=== PATIENT | female | born 1935 | race Caucasian/White ===

== ENCOUNTER 2018-09-07 12:32 | Inpatient (IN) ==
[2018-09-07] MEDS ORDERED: ETOMIDATE 2 MG/ML 20 ML VIAL IV ONE (18:29)
--- NOTE | 2018-09-07 19:05 | History & Physical Report ---
Date of Service September 07, 2018 Assessment & Plan (1) Hypoxia: No respiratory distress. On NRB 15L with 92% sat. No respiratory distress. Patient seems to be euvolemic on physical exam. Lungs with bibasilar crackles. ?multifocal PNA vs infammation. -Admit to PCU, continuous pulse oximetry -Supplemental O2 as needed -Check VBG, Procalcitonin, BNP -Check CXR PA and lateral, may need CT chest as well -Pulmonary consult - appreciate assistance -Continue Levaquin for now - patient has been on since 09/03, nearing completion of course Present on Admission?: Yes (2) Pneumonia: Patient treated for PNA at OSH. Presently afebrile, hemodynamically stable. Does not complain of constitutional symptoms consistent with PNA -Continue Levaquin for now and discontinue pending results below -Check Procalcitonin -Check Blood cultures -Check CXR (3) Hypertension: -Conitnue home medications, Atenolol, Benazepril, Lasix daily -Continue to monitor (4) CVA (cerebral vascular accident): Patient on ASA and Coumadin anticoagulation. Do not see a statin on her list -Obtain outpatient records -Consider DCing Coumadin if appropriate F/E/N - Heplock. Checking electrolytes. Heart healthy diet as tolerated. Ppx - Lovenox Code -Full per discussion with patient Dispo - Admit to medical floor History of Present Illness Chief Complaint: SOB Primary Care Provider: Matthew Palm Patient is an 82yo female with history of HTN, prior CVA, HLP presenting to [facility] on 09/03/18 with SOB, progressive for 2-3 days prior to admission as well as some anterior chest discomfort. Denies edema, weight gain, nausea, vomiting, chest pain. D-dimer was positive initially, CTA chest negative for acute PE. Imaging confirmed multilobar PNA and possible CHF. Patient was treated with IV Levaquin, nebs and steroids. She was diuresed with IV lasix. Patient with elevated INR on arrival which as reversed with Vitamin K. Patient requested transfer to [facility] as her clinical condition was failing to improve. Patient was transferred to [facility] at her request for Pulmonary assessment. Upon my encounter she is pleasant and awake, NRB in place with no respiratory distress. She states that she still feels short of breath at times. Denies CP/palpitations/edema/orthopnea/abdominal pain/ nausea/vomiting/diarrhea or constipation. Denies fevers/chills. No recent URI, no sick contacts or recent travel. Allergies Allergy/AdvReac Type Severity Reaction Status Date / Time No Known Allergies Allergy Unverified 09/07/18 18:57 Past Med/Surg History Medical History CVA (cerebral vascular accident) Hyperlipidemia Hypertension Surgical History S/P cataract extraction Family History Other Family history non-contributory Social History Communication Ability: Effective Machine Lead Burner Required: No Beliefs That Will Affect Care: None Current Living Situation: Spouse Other Information That Helps Us Care for You: No Feels Safe at Home: Yes Safety Concerns: Feels Safe At This Time Smoking Status: Never smoker Hx Alcohol Use: No Hx Substance Use: No Review of Systems All systems reviewed & are unremarkable except as noted in HPI & below Physical Exam Vital Signs (Past 24 Hours): Last Vital Signs Temp 36.9 C 09/07/18 18:18 Pulse 83 09/07/18 18:18 Resp 16 09/07/18 18:18 Pulse Ox 92 09/07/18 18:18 Physical Exam: General: patient resting comfortably, NAD, non-toxic in appearance, AA&O x 4, speaking in complete sentences with no respiratory distress Skin: warm, dry, intact, no rashes or lesions HEENT: NC/AT, PERRL, EOMI, anicteric sclera, conjunctiva without injection, external ear normal to inspection and nontender, nares patent, moist mucus membranes, dentition intact, no oropharyngeal lesions, neck supple, trachea midline, no LAD, no thyromegaly, no JVD, 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 Differential considerations include pilateral pneumonia/pneumonitis or asymmetric pulmonary edema. Large hiatal hernia 09/03/18 - CTA - moderate cardiomegaly. No pericardial effusion. No thoracic aneurysm. No PE. Bilateral multilobar interstitial and ground glss infiltrates possibly secondary to infection and atelectasis vs inflammatory pneumonitis vs edema. Code Status & VTE Plan Code Status full VTE Prophylaxis Plan VTE Prophylaxis will be ordered: Yes
[2018-09-07] MEDS ORDERED: ALBUTEROL 0.5% NEB SOLN 2.5 MG/0.5 ML VIAL NEB PRN (19:29)
[2018-09-07] MEDS ORDERED: ALUMINUM/MAGNESIUM SUSP 30 ML UDC PO PRN (19:29)
[2018-09-07] MEDS ORDERED: ACETAMINOPHEN 325 MG TAB PO PRN (19:29)
[2018-09-07] MEDS ORDERED: HYDROCODONE/ACETAMOPHEN 5/325MG TAB PO PRN (19:39)
[2018-09-07] MEDS ORDERED: DOCUSATE SODIUM 100 MG CAP PO PRN (19:39)
[2018-09-07 20:22] LABS: Hematocrit (blood only) 32.8 % (37-47); Hemoglobin 11.2 g/dL (12.0-16.0); Immature Granulocytes # (auto) 0.04 K/uL (0.00-0.02); Immature Granulocytes % (auto) 0.2 %; Lymphocytes # (auto) 0.35 K/uL (1.2-3.4); Lymphocytes % (auto) 2.1 %; Mean Corpuscular Hgb Conc 34.1 g/dL (32-36); Mean Corpuscular Volume 91.1 fL (80-100); Mean Platelet Volume 10.3 fL (7.4-10.4); Monocytes # (auto) 0.34 K/uL (0.11-0.59); Monocytes % (auto) 2.1 %; Neutrophils # (auto) 15.77 K/uL (1.4-6.5); Neutrophils % (auto) 95.6 %; Platelet Count 197 K/uL (130-400); RDW Coefficient of Variation 13.2 % (11.5-14.5); RDW Standard Deviation 43.8 fL (36.4-46.3)
[2018-09-07 20:32] LABS: INR 1.5 (0.9-1.1); Prothrombin Time 14.8 Seconds (9.0-12.0)
[2018-09-07 20:33] LABS: Base Excess VBG 6.4 mEq/L; HCO3 VBG 31 mmol/L; Oxygen Saturation VBG < 60.0 %; PCO2 VBG 45 mmHg (38-50); PO2 VBG 25 mmHg; pH VBG 7.46 (7.36-7.41)
[2018-09-07 20:40] LABS: Albumin Level 2.1 gm/dl (3.4-5.0); BUN Creatinine Ratio 32.3 (10-20); Bilirubin Direct 0.3 mg/dl (0-0.2); Calcium 8.1 mg/dl (8.5-10.1); Creatinine Clr Calc Pharmacy 35.6 ml/min; Est GFR (African American) 46.8; Est GFR (Non-African American) 40.4; Magnesium 2.1 mg/dl (1.8-2.4); Potassium 3.9 mmol/L (3.5-5.1)
[2018-09-07] MEDS ORDERED: LEVOFLOXACIN/D5W 500 MG/100 ML BAG IV ONE (20:45)
[2018-09-07 20:46] LABS: Bilirubin,Total 0.6 mg/dl (0.2-1); Phosphorus 2.9 mg/dl (2.5-4.9); Total Protein 6.2 gm/dl (6.4-8.2); Troponin I 0.033 ng/ml (0-0.045)
[2018-09-07] MEDS ORDERED: ENOXAPARIN INJ 30 MG/0.3 ML SYR SQ SCH (21:00)
[2018-09-08 06:39] LABS: Hematocrit (blood only) 32.1 % (37-47); Hemoglobin 10.9 g/dL (12.0-16.0); Immature Granulocytes # (auto) 0.04 K/uL (0.00-0.02); Immature Granulocytes % (auto) 0.3 %; Lymphocytes # (auto) 0.66 K/uL (1.2-3.4); Lymphocytes % (auto) 4.5 %; Mean Corpuscular Volume 90.2 fL (80-100); Mean Platelet Volume 9.9 fL (7.4-10.4); Monocytes # (auto) 0.37 K/uL (0.11-0.59); Monocytes % (auto) 2.5 %; Neutrophils # (auto) 13.63 K/uL (1.4-6.5); Neutrophils % (auto) 92.7 %; Platelet Count 210 K/uL (130-400); RDW Standard Deviation 42.7 fL (36.4-46.3); Red Blood Count 3.56 M/uL (4.2-5.4)
[2018-09-08 06:40] LABS: Base Excess VBG 6.6 mEq/L; Oxygen Saturation VBG 81.8 %; pH VBG 7.49 (7.36-7.41)
--- NOTE | 2018-09-08 06:50 | XRay Report ---
XR chest 1V portable CLINICAL HISTORY: Shortness of breath. COMPARISON STUDY: Chest radiograph August 29, 2018. FINDINGS: No pneumothorax or pleural effusion is identified. There is a large hiatal hernia. Extensiv e bilateral airspace opacities persist. There is moderate cardiomegaly. Severe osteoarthritis of both glenohumeral joints incidentally noted. IMPRESSION: 1. Persistent extensive bilateral airspace opacities which may reflect pneumonia or pulmonary edema. 2. Large hiatal hernia. Electronically signed by: Larry Shi M.D. 09/08/2018 6:49 AM
[2018-09-08 07:13] LABS: BUN Creatinine Ratio 40.1 (10-20); Calcium 8.5 mg/dl (8.5-10.1); Creatinine Clr Calc Pharmacy 46.7 ml/min; Est GFR (Non-African American) 54.4; Potassium 3.9 mmol/L (3.5-5.1)
--- NOTE | 2018-09-08 08:10 | CT Scan Report ---
CT OF THE CHEST WITHOUT IV CONTRAST CLINICAL HISTORY: increasing oxygen demand COMPARISON STUDY: Chest CT September 03, 2018. Chest radiograph September 07, 2018. CT DOSE: 454.50 mGy.cm TECHNIQUE: Axial images of the chest were obtained without IV contrast. Images were reviewed in the axial, sagittal, and coronal planes. IV contrast was not administered for this examination. Automat ed exposure control was utilized for the study. A dose lowering technique was utilized adhering to t he principles of ALARA. FINDINGS: The heart is moderately enlarged. There is no pericardial effusion. No enlarged axillary, mediastinal or hilar lymph nodes are present. A large hiatal hernia with partially intrathoracic stom ach is noted. There is no pneumothorax. A small left pleural effusion is noted. Lungs are suboptimall y assessed given respiratory motion. Extensive airspace opacities throughout both lungs are noted. Ri ght lung airspace opacity is increased since CT of September 03, 2018. Central airways are grossly patent . There is no cavitation. Several old thoracic spine compression fractures are present. IMPRESSION: 1. Slight progression of extensive bilateral airspace opacities since exam of September 03, 2018. These o pacities may reflect pneumonia or pulmonary edema. 2. Small left pleural effusion. 3. Large hiatal hernia. 4. Moderate cardiomegaly. Electronically signed by: Larry Shi M.D. 09/08/2018 8:08 AM
[2018-09-08] MEDS: QUETIAPINE FUMARATE 25 MG TABLET PO SCH (08:16)
[2018-09-08] MEDS: DULOXETINE HCL 30 MG CAP PO SCH (08:17)
[2018-09-08] MEDS: ATENOLOL 25 MG TABLET PO SCH (08:17)
[2018-09-08] MEDS: LISINOPRIL 10 MG TAB PO SCH (08:17)
[2018-09-08] MEDS: ASPIRIN 81 MG ECTAB PO SCH (08:17)
[2018-09-08] MEDS: FUROSEMIDE 20 MG TAB PO SCH (08:17)
[2018-09-08] MEDS: GABAPENTIN 100 MG CAP PO SCH (08:17)
[2018-09-08] MEDS: ALBUT/IPRATROP 3MG/0.5MG NEB 3 ML VIAL NEB SCH ×4 (11:11→23:35)
[2018-09-08] MEDS ORDERED: PIPERACILL/TAZOBAC CONSULT ACTIVE PRN (11:29)
[2018-09-08] MEDS ORDERED: PIPERACILLIN/TAZOBACTAM 3.375 GM in DEXTROSE 5% 100 ML IV ONE (12:30)
[2018-09-08 12:33] LABS: INR 1.5 (0.9-1.1); Prothrombin Time 15.1 Seconds (9.0-12.0)
--- NOTE | 2018-09-08 13:01 | Consultation Report ---
DATE OF CONSULTATION: 09/08/2018 PULMONARY CONSULTATION TIME: 11:05 a.m. REPORT OF CONSULTATION: The patient was seen in room 237. She is an 82-year-old female who was admitted to [facility] on September 03. The history was that she had had fatigue, some shortness of breath and an occasional cough for several days prior to that admission. She did not have any sputum production. She had no chills, fevers or sweats. She did not have sharp chest pains. She describes having a discomfort in the lower breast bone area slightly on the left. She denies vomiting, although she admits to having a longstanding history of an acid taste in her mouth. She states that she is not felt like doing house work since June, suggesting that she was having some symptoms prior to this. Her appetite is down some. She has lost a little bit of weight, she thinks. She has not gotten weight, however. The patient was diagnosed with CHF and pneumonia when she was first admitted. There was an echocardiogram done on September 04 that showed a normal ejection fraction, but with grade 1 diastolic dysfunction. The patient was on long-term Coumadin. Her INR on admission was 6.4. Her granddaughter was present during this evaluation and she states that it was started initially because of atrial fibrillation which then precipitated a CVA. The prolonged INR was somewhat perplexing. She was changed to Eliquis when she was at [facility]. They treated her there with Levaquin, nebulizer treatments and at least 1 day of Solu-Medrol. She was not significantly short of breath, but her hypoxia and shunt were not improving. She required high concentrations of oxygen as she is still requiring here. She was transferred to [facility] yesterday. She feels about the same. PAST PULMONARY HISTORY: None. PAST SURGICAL HISTORY: Positive only for bilateral cataract surgery. PAST MEDICAL HISTORY: 1. Hypertension. 2. CVA x2 approximately 2015. 3. Hyperlipidemia. 4. Large hiatal hernia. 5. Childbirth x1. SOCIAL HISTORY: Tobacco never. ETOH - none. FAMILY HISTORY: Mother in her 70s, diabetes. Father , 56, lung cancer. Her father was a smoker. ALLERGIES: No known allergies. CURRENT MEDICATIONS: Here: 1. Levofloxacin. 2. Baby aspirin. 3. Atenolol. 4. Duloxetine. 5. Lasix. 6. Gabapentin. 7. Lisinopril. 8. Lovenox 30 mg subQ q. 24 hours. 9. Seroquel. 10. DuoNebs q. 4. 11. Various p.r.n. meds. REVIEW OF SYSTEMS: The patient denies headache, dizziness or lightheadedness. She denies nasal symptoms. Denies difficulty swallowing, but as noted, she admits to an acid taste in her mouth, especially in the morning. Denies nausea, vomiting, diarrhea, constipation. Denies urinary symptoms. She has noticed pain in her knees with standing or walking. There have been no rashes. Review of systems is otherwise negative. PHYSICAL EXAMINATION: GENERAL: The patient is a pleasant 82-year-old female who was cooperative, alert and oriented. She actually was in no distress at rest. Weight is 80 kilograms with BMI 29.3. HEENT: Pupils were reactive. Implants were noted. Nares clear. Mouth exam showed dentures. Tongue was coated. NECK: Palpation of the neck reveals no lymph nodes or masses. CHEST: Inspection of the chest reveals an area of ecchymosis in the right upper anterior chest. She was unaware that that was there. It is not tender. Cardiac rate is 63 per minute. Rhythm is regular. Blood pressure 109/65. LUNGS: Respiratory rate 20. Diffuse coarse rhonchi and rales heard bilaterally. The patient coughed when taking deep breaths. Saturation was 87% on 65% FIO2 high flow. ABDOMEN: Soft. Bowel sounds were normal. There was no tenderness to palpation, masses or organomegaly. EXTREMITIES: Showed no cyanosis, clubbing. She has nonpitting edema of the lower extremities. LABORATORY DATA: As noted previously, CAT scan of the chest shows extensive bilateral airspace opacities, which may reflect pneumonia or pulmonary edema as per the radiologist. A very large hiatal hernia is noted with partially intrathoracic stomach. Cardiomegaly was noted. White count is 14.7. Hemoglobin 10.9. Platelets 210,000. INR yesterday was 1.5. Venous blood gas showed pH 7.49, pCO2 of 42, pO2 of 47. Electrolytes show sodium 132, potassium 3.9, chloride 96, bicarbonate 31. BUN 39 with a creatinine 0.97. ProBNP was 2109. Total protein 6.2 with albumin of 2.1. IMPRESSION: 1. Acute respiratory failure with hypoxia. 2. Diffuse bilateral airspace disease of undetermined etiology. COMMENTS AND RECOMMENDATIONS: The patient is relatively asymptomatic despite having severe hypoxia and severely abnormal CAT scan findings. She does not have a history of fevers or productive sputum that would make one more suspicious of infection. Aspiration would need to be considered and it is possible she could have ARDS secondary to aspiration. She does have the acid taste in her mouth on a fairly regular basis. Interstitial pneumonitis, either infectious or noninfectious would be a consideration. It is difficult to determine the exact chronicity of this problem. Seemingly it was fairly acute onset. She has had a brief trial of steroids at the other hospital for at least 24 hours. She did have a course of levofloxacin. I am suggesting a trial of BiPAP to see if this might improve her oxygenation and perhaps her x-ray findings as well depending upon what the underlying cause is. She has done reasonably well with high-flow nasal when she is comfortable with that. I will check a sed rate. It is notable that the procalcitonin was normal. That does not entirely exclude pneumonia, but it makes that possibility less. I would be inclined to give her some steroids at least in modest doses such as 40 mg IV q. 12 hours. It is possible the patient might ultimately need bronchoscopy if nothing is evident. With such a shunt, she would likely need to be done on mechanical ventilation. In light of her relative lack of symptoms, would continue to observe and continue with her treatment. She had been on levofloxacin at the other hospital. That is ordered here as well. I would tend to change to an alternative antibiotic, perhaps Zosyn, in light of her lack of response to levofloxacin. Her echo was only mildly abnormal and suggesting diastolic dysfunction. I think that makes it less likely that this is all related to diastolic CHF. There is no history of any change in meds that might have precipitated a drug reaction. Thank you for asking me to assist in her care.
[2018-09-08] MEDS: ENOXAPARIN 80 MG/0.8 ML SYR SC SCH ×2 (13:24→21:20)
[2018-09-08] MEDS: methylPREDNISolone 40 MG in SYRINGE 0 ML IV SCH (14:09)
[2018-09-08] MEDS: LACTOBACILLUS ACIDOPHILUS (FLORANEX) TAB PO SCH ×2 (15:03→17:44)
--- NOTE | 2018-09-08 16:45 | Hospitalist Progress Note ---
Date of Service September 08, 2018 Assessment & Plan (1) Hypoxia: She seems in surprisingly little distress for oxygen requirements and CT scan. Continue supportive care and follow closely. (2) Pneumonia: Exact etiology not clear, she has been on Levaquin for several days and it seems like she is not really getting better, at the same time she does not seem to be feeling worse just not better. Seems that her main reason for transfer was for pulmonary consultation, not necessarily clinical worsening. Pulmonary suggested change from Levaquin to Zosyn, a trial of BiPAP. I have escalated pulmonary toilet to utilize nebs and flutter valve. Continue supportive care. Also not entirely clear if this is all pneumonia or if there may be some element of pulmonary edema. Will check an echocardiogram to help risk stratify much of any cardiomyopathy. (3) Hypertension: -Conitnue home medications, Atenolol, Benazepril, Lasix daily -Continue to monitor, blood pressures have been a little on the low side, c ontinue to follow. (4) CVA (cerebral vascular accident): Patient on ASA and Coumadin anticoagulation. Do not see a statin on her list -Obtain outpatient records -Apparently the Coumadin was related to atrial fibrillation. For now since she is subtherapeutic, and a bronchoscopy may be needed in the near future, we will continue anticoagulation with full dose Lovenox (since it can be held as needed for procedure.) F/E/N - Heplock. Checking electrolytes. Heart healthy diet as tolerated. Ppx - Lovenox as above Code -Full per discussion with patient by admitting physician Dispo -continue current care on telemetry, eventually when she is doing better we will need PT/OT eval and treat to help with full disposition planning Subjective She is a somewhat vague historian. She actually denies much of any shortness of breath, and whenever pressing for respiratory symptoms will admit loosely to a c ough without much production. She flat out denies any fevers chills or sweats. She vaguely notes a nondescript malaise that was mostly manifest as weakness and a motivation over the last several months. Seems like it has been gradually coming on since around [place]. She denies any chest pain, really does not admit any shortness of breath. Has been eating and drinking okay. Review of Systems All systems reviewed & are unremarkable except as noted in HPI & below Physical Exam Vital Signs (Past 24 Hours): Last Vital Signs Temp 36.5 C 09/08/18 16:06 Pulse 65 09/08/18 16:06 Resp 20 09/08/18 16:06 BP 96/60 L 09/08/18 16:06 Pulse Ox 91 09/08/18 16:06 Physical Exam: In general she is fatigued appearing but otherwise in no distress. HEENT normocephalic atraumatic mucous membranes moist. Cardio is regular without rubs murmurs gallops. Lungs show diffuse scattered crackles no rhonchi or wheezes otherwise with good effort. Abdomen is soft nondistended nontender no masses or organomegaly. Extremities show no cyanosis or clubbing may be trace lower extremity edema. Skin shows no rashes no pallor or icterus. Neuro shows no focal deficits.
[2018-09-08] MEDS: PIPERACILLIN/TAZOBACTAM 3.375 GM in DEXTROSE 5% 100 ML IV SCH (17:44)
[2018-09-08] MEDS ORDERED: LEVOFLOXACIN/D5W 500 MG/100 ML BAG IV SCH (18:00)
[2018-09-09] MEDS: methylPREDNISolone 40 MG in SYRINGE 0 ML IV SCH ×3 (00:01→23:22)
[2018-09-09] MEDS: PIPERACILLIN/TAZOBACTAM 3.375 GM in DEXTROSE 5% 100 ML IV SCH ×3 (02:10→18:53)
[2018-09-09] MEDS: ALBUT/IPRATROP 3MG/0.5MG NEB 3 ML VIAL NEB SCH ×6 (03:14→23:32)
--- NOTE | 2018-09-09 07:15 | XRay Report ---
XR chest 1V portable HISTORY: 82 years-old Female lung infiltrates acute shortness of breath with bilateral airspace opac ities COMPARISON: Chest radiograph 09/07/2018, chest CT 09/08/2018 TECHNIQUE: Portable AP view of the chest FINDINGS: Cardiomediastinal and hilar silhouettes are unchanged. Left greater than right bilateral mixed inters titial and alveolar opacities redemonstrated. Slightly improved aeration of the left lung. Trace left pleural effusion is unchanged. No pneumothorax identified. Large hiatal hernia. Degenerative changes of the shoulders and spine. IMPRESSION: 1. Extensive left greater than right bilateral mixed interstitial and alveolar opacities redemonstrat ed with slightly improved aeration about the left lung. 2. Trace left pleural effusion. 3. Large hiatal hernia. 4. Cardiomegaly. The above report was generated using voice recognition software. It may contain grammatical, syntax o r spelling errors. Electronically signed by: Tod Giraldo M.D. 09/09/2018 7:14 AM
[2018-09-09] MEDS: LACTOBACILLUS ACIDOPHILUS (FLORANEX) TAB PO SCH ×3 (08:20→16:38)
[2018-09-09] MEDS: QUETIAPINE FUMARATE 25 MG TABLET PO SCH (08:21)
[2018-09-09] MEDS: ASPIRIN 81 MG ECTAB PO SCH (08:21)
[2018-09-09] MEDS: GABAPENTIN 100 MG CAP PO SCH (08:21)
[2018-09-09] MEDS: LISINOPRIL 10 MG TAB PO SCH (08:21)
[2018-09-09] MEDS: DULOXETINE HCL 30 MG CAP PO SCH (08:21)
[2018-09-09] MEDS: ATENOLOL 25 MG TABLET PO SCH (08:21)
[2018-09-09] MEDS: FUROSEMIDE 20 MG TAB PO SCH (08:21)
[2018-09-09] MEDS: ENOXAPARIN 80 MG/0.8 ML SYR SC SCH ×2 (08:21→20:22)
--- NOTE | 2018-09-09 08:45 | Hospitalist Progress Note ---
Date of Service September 09, 2018 Assessment & Plan (1) Hypoxia: She seems in surprisingly little distress for oxygen requirements and CT scan. Continue supportive care and follow closely. Likely secondary to multilobar pneumonia considering atypical pneumonia (2) Pneumonia: Exact etiology not clear, she has been on Levaquin for several days and it seems like she is not really getting better, 330, change from Levaquin to Zosyn, using high flow oxygen, escalated pulmonary toilet to utilize nebs and flutter valve. 09/09 add azithromycin for atypical coverage could consider pulmonary consultation for bronchoscopy consider other nontypical pulmonary infections Unrevealing echocardiogram showing preserved EF and no significant valvular abnormalities (3) Hypertension: -Conitnue home medications, Atenolol, lisinopril, Lasix daily systoic hypertension, will tolerate as diastolic are low (4) CVA (cerebral vascular accident): Patient on ASA and plavix. -Apparently previously Coumadin was related to atrial fibrillation. On admission she was subtherapeutic, and a bronchoscopy may be needed in the near future, she will be bridged with full dose Lovenox (since it can be held as needed for procedure.) F/E/N - Heplock. Checking electrolytes. Heart healthy diet as tolerated. Ppx - Lovenox as above Code -Full per discussion with patient by admitting physician Dispo -continue current care on telemetry, eventually when she is doing better we will need PT/OT eval and treat to help with full disposition planning Subjective Patient still requiring high flow oxygen she is fairly short of breath she says that she is a nonproductive cough. She is been around some cigarette secondhand smoke with her but this is not throughout the whole marriage. He is quit many years ago and remains not smoking. Patient's chest x-ray has some slight improvement in his bilaterally and multi lobar is making me consider atypical pneumonia is possible the differential. Review of Systems ROS: well nourished well developed. No double vision blurry vision No problems with speech or swallowing No palpitations, chest pain or pressure Patient remains dyspneic with a nonproductive cough No abdominal pain nausea vomiting diarrhea No burning urine urine frequency or changes in color No focal joint pain or muscle pain No skin rashes or oral lesions No unusual bruising or bleeding No focused back pain or numbness or loss of strength No changes in memory or confusion Physical Exam Vital Signs (Past 24 Hours): Last Vital Signs Temp 36.6 C 09/09/18 08:05 Pulse 69 09/09/18 08:05 Resp 16 09/09/18 08:05 BP 126/77 09/09/18 08:05 Pulse Ox 90 09/09/18 08:05 The patient appeared well nourished and normally developed. Vital signs as documented. She is in moderate respiratory distress Head exam is unremarkable. normocephalic, atraumatic Neck is without jugular venous distension, thyromegaly, or lymphademopathy Lungs are bibasilarly with coarse rhonchi bilaterally in the upper lobes no egophony no focal air loss Cardiac exam reveals Rhythm is regular. Slight systolic murmurs heard at the left upper sternal border first and second heart sounds normal. Abdominal exam reveals normal bowel sounds, no masses, no organomegaly Extremities are nonedematous and both pedal pulses are present Neurologic exam is A&Ox3, no focal deficits, strength is equal bilateral Psychologically seems neither anxious or depressed Skin is warm Dry without bruises or lesions
[2018-09-09 08:49] LABS: Hematocrit (blood only) 35.5 % (37-47); Hemoglobin 11.9 g/dL (12.0-16.0); Immature Granulocytes # (auto) 0.03 K/uL (0.00-0.02); Immature Granulocytes % (auto) 0.3 %; Lymphocytes # (auto) 0.34 K/uL (1.2-3.4); Lymphocytes % (auto) 3.1 %; Mean Corpuscular Hgb Conc 33.5 g/dL (32-36); Mean Platelet Volume 9.7 fL (7.4-10.4); Monocytes # (auto) 0.19 K/uL (0.11-0.59); Monocytes % (auto) 1.8 %; Neutrophils # (auto) 10.24 K/uL (1.4-6.5); Neutrophils % (auto) 94.8 %; Platelet Count 270 K/uL (130-400); RDW Coefficient of Variation 13.2 % (11.5-14.5); RDW Standard Deviation 43.1 fL (36.4-46.3)
[2018-09-09 09:06] LABS: BUN Creatinine Ratio 32.5 (10-20); Calcium 8.6 mg/dl (8.5-10.1); Creatinine Clr Calc Pharmacy 38.6 ml/min; Est GFR (African American) 51.9; Est GFR (Non-African American) 44.7; Potassium 3.9 mmol/L (3.5-5.1)
--- NOTE | 2018-09-09 14:46 | Progress Note ---
DATE: 09/09/2018 PULMONARY PROGRESS NOTE TIME: 1:05 p.m. SUBJECTIVE: The patient overall feels about the same. She is not the best historian. She does not feel that her breathing is any better. At the same time, she told me she overall felt better, but she could not tell me one particular way that she felt better. She was not fond of the BiPAP, although nursing and respiratory told me that BiPAP did better at improving her oxygenation than the high flow has. We had her wear BiPAP for 2 sessions yesterday of about 2 hours each. She then wore it overnight. OBJECTIVE: GENERAL: The patient looks comfortable. She is slightly sleepy. VITAL SIGNS: Temperature is 36.8. There have been no fevers. ENT: Exam is unchanged from yesterday. CARDIAC: Heart rate is 64 per minute. Rhythm was regular. Blood pressure 106/70. I had difficulty getting the patient to take deep breaths. Mild rales were heard posteriorly. LUNGS: Breath sounds were diminished. Saturation was 91% on high-flow nasal. I was told she is on 65%. ABDOMEN: Soft and nontender. EXTREMITIES: Show mild nonpitting edema. DIAGNOSTIC STUDIES: Echocardiogram done yesterday showed an ejection fraction of 60%-65% with grade I diastolic dysfunction. Chest x-ray today again showed bilateral interstitial and alveolar opacities, left greater than right. It was reported as slight improvement in the area of the left lung. Large hiatal hernia was noted. White count today was 10.8. This has improved. Admission white count was 16.5 and yesterday was 14.7. Hemoglobin today 11.9. Electrolytes show sodium 132, potassium 3.9, chloride 93, bicarbonate 31. The BUN today was 37 with a creatinine of 1.14. The creatinine is elevated compared with yesterday when it was 0.97. Blood cultures are negative thus far. IMPRESSION: 1. Acute respiratory failure with hypoxia. 2. Diffuse bilateral airspace disease of undetermined origin. Considerations include aspiration, interstitial pneumonitis, acute respiratory distress syndrome, etc. PLAN: The patient is making very slow progress. The etiology of her infiltrates is not clear. She is currently on Zosyn and methylprednisolone. She is also getting nebulizer treatments q.4 hours. If there is no improvement in another 48 hours or so, consideration might be given to bronchoscopy. In all likelihood, if she has not improved, that scope would need to be done with mechanical ventilation. Thus, there may be considerations as to whether the patient would wish this or not.
[2018-09-09] MEDS ORDERED: FUROSEMIDE 20 MG in SYRINGE 0 ML IV ONE (16:15)
[2018-09-09] MEDS: AZITHROMYCIN 500 MG in DEXTROSE 5% 250 ML IV SCH (16:50)
[2018-09-09] MEDS ORDERED: DiphenhydrAMINE HCL 50 MG/ML VIAL IV STA (20:09)
[2018-09-10] MEDS ORDERED: ZOLPIDEM TARTRATE 5 MG TAB PO ONE (00:38)
[2018-09-10] MEDS: PIPERACILLIN/TAZOBACTAM 3.375 GM in DEXTROSE 5% 100 ML IV SCH ×3 (01:51→19:27)
[2018-09-10] MEDS: ALBUT/IPRATROP 3MG/0.5MG NEB 3 ML VIAL NEB SCH ×6 (03:44→23:44)
[2018-09-10] MEDS: ENOXAPARIN 80 MG/0.8 ML SYR SC SCH ×2 (07:53→21:22)
[2018-09-10] MEDS: QUETIAPINE FUMARATE 25 MG TABLET PO SCH (07:54)
[2018-09-10] MEDS: LACTOBACILLUS ACIDOPHILUS (FLORANEX) TAB PO SCH ×3 (07:54→17:10)
[2018-09-10] MEDS: ATENOLOL 25 MG TABLET PO SCH ×2 (07:54→09:51)
[2018-09-10] MEDS: LISINOPRIL 10 MG TAB PO SCH (07:55)
[2018-09-10] MEDS: DULOXETINE HCL 30 MG CAP PO SCH (07:55)
[2018-09-10] MEDS: FUROSEMIDE 20 MG TAB PO SCH (07:55)
[2018-09-10] MEDS: ASPIRIN 81 MG ECTAB PO SCH (07:55)
[2018-09-10] MEDS: GABAPENTIN 100 MG CAP PO SCH (07:55)
--- NOTE | 2018-09-10 11:25 | Hospitalist Progress Note ---
Date of Service September 10, 2018 Assessment & Plan (1) Hypoxia: She seems in surprisingly little distress for oxygen requirements and CT scan. Continue supportive care and follow closely. Likely secondary to multilobar pneumonia considering atypical pneumonia, pneumonitis, ARDS patient speaking in complete sentences encourage OOB as much as possible, ambulate will need to titrate down on oxygen, saturation goal is 88% will need two step prior to d/c hope to be ready by 09/12 (2) Pneumonia: continue on Zosyn and Zithromax multifocal pneumonia, could be due to immunocompromised state with cancer could also be some pneumonitis from chemoradiation no plans for bronchoscopy continue Steroids (3) Hypertension: -Conitnue home medications, Atenolol, lisinopril, Lasix daily systoic hypertension, will tolerate as diastolic are low (4) CVA (cerebral vascular accident): Patient on ASA and plavix. -Apparently previously Coumadin was related to atrial fibrillation. On admission she was subtherapeutic, and a bronchoscopy may be needed in the near future, she will be bridged with full dose Lovenox (since it can be held as needed for procedure.) F/E/N - Heplock. Checking electrolytes. Heart healthy diet as tolerated. Ppx - Lovenox as above Code -Full per discussion with patient by admitting physician Dispo - PT/OT daniel, will transfer to medical tomorrow, likely will require oxygen on discharge (5) Pneumonitis: continue Steroids slow taper on discharge Subjective patient laying in bed, no distress, speaking in full sentences still requiring HFNC, on 40L currently lungs diminished, no wheezing she has a good appetite, ate her breakfast no OOB yet today, encouraged her to make an effort for lunch and stay OOB afterwards she is asking about discharge, explained that she will need to be requiring less oxygen cough is minimal appreciate pulmonology notes, no plans for bronchoscopy for now reviewed labs, reviewed chart Review of Systems All systems reviewed & are unremarkable except as noted in HPI & below Constitutional: + fatigue and + weakness; no fever, no chills and no sweats Respiratory: + cough, + dyspnea and + dyspnea on exertion; no hemoptysis, no pain with cough, no sputum production and no wheezing Cardiovascular: + edema (trace); no chest pain and no palpitations Physical Exam Vital Signs (Past 24 Hours): Last Vital Signs Temp 36.4 C L 09/10/18 10:23 Pulse 64 09/10/18 11:09 Resp 16 09/10/18 11:09 BP 118/66 09/10/18 10:23 Pulse Ox 89 L 09/10/18 11:09 Constitutional: WD/WN, vitals as above Eyes: PERRL, conjunctivae normal, anicteric sclerae ENMT: external ear and nose normal, oropharynx normal Neck: trachea midline, no thyromegaly Respiratory: normal respiratory effort and normal percussion; no respiratory distress, no labored breathing and does not use accessory muscles Auscultation: lungs clear to auscultation bilaterally; no wheezes Cardiovascular: RRR, no murmur, no edema Gastrointestinal (Abdomen): normal bowel sounds, soft, nontender, no he patosplenomegaly Musculoskeletal: no cyanosis or clubbing, extremities motor strength 5/5 Skin: no rashes, warm and dry Neurologic: patellar DTR's 2+ bilat, sensation intact and PERRL, EOMI, accommodation nl, no face palsy, no dysarthria Psychiatric: A+Ox3, euthymic affect Lymphatic: no cervical or axillary lymphadenopathy Results & Data Medications Administered Current Inpatient Medications Acetaminophen (Tylenol) 650 mg PO Q4H PRN PRN Reason: Pain or Fever Stop: 10/07/18 19:28 Hydrocodone Bitart/Acetaminophen ([place] 5/325) 1 tab PO Q4H PRN PRN Reason: Pain Stop: 09/21/18 19:38 Al Hydrox/Mg Hydrox/Simethicone (Maalox) 15 ml PO Q4H PRN PRN Reason: Dyspepsia Stop: 10/07/18 19:28 Albuterol (Ventolin 0.5% 2.5mg/0.5ml) 2.5 mg NEB Q2H PRN PRN Reason: SOB/Wheeze Stop: 10/07/18 19:28 Albuterol (Duoneb) 3 ml NEB Q4R [facility] Stop: 10/08/18 11:59 Last Admin: 09/10/18 11:08 Dose: 3 ml Documented by: Aspirin (Ecotrin Ectab) 81 mg PO DAILY [facility] Stop: 10/08/18 08:59 Last Admin: 09/10/18 07:55 Dose: 81 mg Documented by: Atenolol (Tenormin) 25 mg PO [facility] Stop: 10/08/18 08:59 Last Admin: 09/10/18 09:51 Dose: 25 mg Documented by: Docusate Sodium (Colace) 100 mg PO BID PRN PRN Reason: Constipation Stop: 10/07/18 19:38 Duloxetine HCl (Cymbalta) 30 mg PO [facility] Stop: 10/08/18 08:59 Last Admin: 09/10/18 07:55 Dose: 30 mg Documented by: Enoxaparin Sodium (Lovenox) 80 mg SC BID [facility] Stop: 10/08/18 11:59 Last Admin: 09/10/18 07:53 Dose: 80 mg Documented by: Furosemide (Lasix) 20 mg PO [facility] Stop: 10/08/18 08:59 Last Admin: 09/10/18 07:55 Dose: 20 mg Documented by: Gabapentin (Neurontin) 100 mg PO [facility] Stop: 10/08/18 08:59 Last Admin: 09/10/18 07:55 Dose: 100 mg Documented by: Piperacillin Sod/Tazobactam (Sod 3.375 gm/ Dextrose) 115 mls @ 28.75 mls/hr IV Q8H [facility]; Protocol Stop: 09/15/18 17:59 Last Admin: 09/10/18 10:20 Dose: 30 mls/hr Documented by: Methylprednisolone 40 mg/ (Syringe) 0.64 mls @ 1.5 mls/min IV Q12H [facility] Stop: 10/08/18 11:59 Last Admin: 09/09/18 23:22 Dose: 1.5 mls/min Documented by: Azithromycin 500 mg/ Dextrose 255 mls @ 125 mls/hr IV Q24H [facility] Stop: 09/16/18 15:59 Last Infusion: 09/09/18 18:53 Dose: Infused Documented by: Lactobacillus Acidophilus (Floranex) 4 tab PO TIDM [facility] Stop: 10/08/18 11:59 Last Admin: 09/10/18 07:54 Dose: 4 tab Documented by: Lisinopril (Zestril) [facility] Stop: 10/08/18 08:59 Last Admin: 09/10/18 07:55 Dose: 10 mg Documented by: Miscellaneous Information (Consult) 1 ea N/A UD PRN PRN Reason: Consult Stop: 10/08/18 11:28 Ondansetron HCl (Zofran) 4 mg IV Q6H PRN PRN Reason: Nausea Stop: 10/07/18 19:28 Quetiapine Fumarate (Seroquel) 25 mg PO DAILY [facility] Stop: 10/08/18 08:59 Last Admin: 09/10/18 07:54 Dose: 25 mg Documented by:
[2018-09-10] MEDS: methylPREDNISolone 40 MG in SYRINGE 0 ML IV SCH ×2 (11:30→23:45)
--- NOTE | 2018-09-10 17:06 | Pulmonology Progress Note ---
Date of Service September 10, 2018 Assessment & Plan (1) Hypoxia: acute hypoxic respiratory failure bilateral infiltrates pneumonia vs pneumonitis vs aspiration vs ARDS on piperacillin-tazobactam and azithromycin still has significant oxygenation need titrate fio2 for sat >88% possible pneumonitis on steroids continue supportive care. patient is relatively asymtomatic for her o2 need Subjective breathing improving Physical Exam Vital Signs (Past 24 Hours): Last Vital Signs Temp 36.7 C 09/10/18 14:57 Pulse 62 09/10/18 15:40 Resp 18 09/10/18 15:40 BP 98/62 L 09/10/18 14:57 Pulse Ox 95 09/10/18 15:40 Physical Exam: Constitutional: Comfortable NAD on high flow NC 63% HEENT: normocephalic atraumatic. MMM. CV: RRR nl s1,s2 no murmurs rubs or gallops Lungs: crackles bilaterally. no accessory muscle use Abd: soft nontender nondistended. normal bowel sounds Ext: no edema. no cyanosis, no edema Skin: warm dry Neuro: alert and awake. moving all extremities Psych: flat affect
[2018-09-10] MEDS: AZITHROMYCIN 500 MG in DEXTROSE 5% 250 ML IV SCH (17:10)
[2018-09-10] MEDS: ZOLPIDEM TARTRATE 5 MG TAB PO PRN (21:22)
[2018-09-11] MEDS: PIPERACILLIN/TAZOBACTAM 3.375 GM in DEXTROSE 5% 100 ML IV SCH ×3 (02:15→18:31)
[2018-09-11] MEDS: ALBUT/IPRATROP 3MG/0.5MG NEB 3 ML VIAL NEB SCH ×6 (03:25→23:08)
[2018-09-11 06:01] LABS: Hematocrit (blood only) 35.7 % (37-47); Hemoglobin 11.9 g/dL (12.0-16.0); Mean Corpuscular Hgb Conc 33.3 g/dL (32-36); Mean Corpuscular Volume 91.1 fL (80-100); Mean Platelet Volume 9.3 fL (7.4-10.4); Platelet Count 308 K/uL (130-400); RDW Coefficient of Variation 13.1 % (11.5-14.5); RDW Standard Deviation 43.7 fL (36.4-46.3); Red Blood Count 3.92 M/uL (4.2-5.4); White Blood Count 12.09 K/uL (4.8-10.8)
[2018-09-11 06:43] LABS: BUN Creatinine Ratio 30.4 (10-20); Calcium 8.2 mg/dl (8.5-10.1); Creatinine Clr Calc Pharmacy 58.1 ml/min; Est GFR (African American) 84.7; Est GFR (Non-African American) 73.1
[2018-09-11] MEDS: LACTOBACILLUS ACIDOPHILUS (FLORANEX) TAB PO SCH ×3 (08:12→17:37)
[2018-09-11] MEDS: ENOXAPARIN 80 MG/0.8 ML SYR SC SCH ×2 (08:17→20:02)
[2018-09-11] MEDS: FUROSEMIDE 20 MG TAB PO SCH (08:19)
[2018-09-11] MEDS: DULOXETINE HCL 30 MG CAP PO SCH (08:19)
[2018-09-11] MEDS: GABAPENTIN 100 MG CAP PO SCH (08:19)
[2018-09-11] MEDS: ATENOLOL 25 MG TABLET PO SCH (08:20)
[2018-09-11] MEDS: QUETIAPINE FUMARATE 25 MG TABLET PO SCH (08:20)
[2018-09-11] MEDS: ASPIRIN 81 MG ECTAB PO SCH (08:21)
[2018-09-11] MEDS: LISINOPRIL 10 MG TAB PO SCH (08:21)
--- NOTE | 2018-09-11 11:37 | Pulmonology Progress Note ---
Date of Service September 11, 2018 Assessment & Plan (1) Hypoxia: acute hypoxic respiratory failure bilateral infiltrates pneumonia vs pneumonitis vs aspiration vs ARDS on piperacillin-tazobactam and azithromycin still has significant oxygenation need but improved from yesterday titrate fio2 for sat >88% possible pneumonitis on steroids. T/C tapering tommorow to daily continue supportive care. OOB as much as possible Subjective feels about the same fio2 on high flow down to 51% Physical Exam Vital Signs (Past 24 Hours): Last Vital Signs Temp 36.7 C 09/11/18 07:00 Pulse 61 09/11/18 11:13 Resp 18 09/11/18 11:13 BP 112/66 09/11/18 07:00 Pulse Ox 95 09/11/18 11:13 Physical Exam: Constitutional: Comfortable NAD on high flow NC 51% HEENT: normocephalic atraumatic. MMM. CV: RRR nl s1,s2 no murmurs rubs or gallops Lungs: slight crackles bilaterally. moving air well no accessory muscle use Abd: soft nontender nondistended. Ext: no edema. no cyanosis, no edema Skin: warm dry Neuro: alert and awake. moving all extremities Psych: flat affec
--- NOTE | 2018-09-11 11:59 | Hospitalist Progress Note ---
Date of Service September 11, 2018 Assessment & Plan (1) Hypoxia: She seems in surprisingly little distress for oxygen requirements and CT scan. Continue supportive care and follow closely. Likely secondary to multilobar pneumonia considering atypical pneumonia, pneumonitis, ARDS patient speaking in complete sentences encourage OOB as much as possible, ambulate will need to titrate down on oxygen, saturation goal is 88% will need two step prior to d/c will likely be hospitalized through the end of this week will get PT/OT to evaluate for any rehab needs (2) Pneumonia: continue on Zosyn and Zithromax multifocal pneumonia WBC down to 12k, no fever no plans for bronchoscopy continue Steroids (3) Hypertension: -Continue home medications, Atenolol, lisinopril, Lasix daily BP stable (4) CVA (cerebral vascular accident): Patient on ASA and plavix. -Apparently previously Coumadin was related to atrial fibrillation. On admission she was subtherapeutic, and a bronchoscopy may be needed in the near future, she will be bridged with full dose Lovenox (since it can be held as needed for procedure.) F/E/N - Heplock. Checking electrolytes. Heart healthy diet as tolerated. Ppx - Lovenox as above Code -Full per discussion with patient by admitting physician Dispo - PT/OT daniel, transfer to medical today (5) Pneumonitis: continue Steroids slow taper on discharge Subjective patient still with dyspnea at rest, but no distress other vitals stable, no fever minimal cough, no sputum production at all WBC down to 12k, Cr stable, electrolytes stable appreciate pulmonology note Review of Systems All systems reviewed & are unremarkable except as noted in HPI & below Constitutional: + fatigue and + weakness; no fever, no chills and no sweats Respiratory: + cough, + dyspnea and + dyspnea on exertion; no hemoptysis, no pain with cough, no sputum production and no wheezing Cardiovascular: + edema (trace); no chest pain and no palpitations Physical Exam Vital Signs (Past 24 Hours): Last Vital Signs Temp 36.7 C 09/11/18 07:00 Pulse 61 09/11/18 11:13 Resp 18 09/11/18 11:13 BP 112/66 09/11/18 07:00 Pulse Ox 95 09/11/18 11:13 Constitutional: WD/WN, vitals as above Eyes: PERRL, conjunctivae normal, anicteric sclerae ENMT: external ear and nose normal, oropharynx normal Neck: trachea midline, no thyromegaly Respiratory: normal respiratory effort and normal percussion; no respiratory distress, no labored breathing and does not use accessory muscles Auscultation: lungs clear to auscultation bilaterally; no wheezes Cardiovascular: RRR, no murmur, no edema Gastrointestinal (Abdomen): normal bowel sounds, soft, nontender, no hepatosplenomegaly Musculoskeletal: no cyanosis or clubbing, extremities motor strength 5/5 Skin: no rashes, warm and dry Neurologic: patellar DTR's 2+ bilat, sensation intact and PERRL, EOMI, accommodation nl, no face palsy, no dysarthria Psychiatric: A+Ox3, euthymic affect Lymphatic: no cervical or axillary lymphadenopathy Results & Data Laboratory Results Laboratory Results - last 24 hr 09/11/18 09/11/18 05:18 05:18 WBC 12.09 H RBC 3.92 L Hgb 11.9 L Hct 35.7 L MCV 91.1 MCH 30.4 MCHC 33.3 RDW Std Deviation 43.7 RDW Coeff of Chris 13.1 Plt Count 308 MPV 9.3 Sodium 134 L Potassium 4.0 Chloride 95 L Carbon Dioxide 33 H Anion Gap 6.0 BUN 23 H Creatinine 0.76 D Est Cr Clr Drug Dosing 58.1 Est GFR ( Amer) 84.7 Est GFR (Non-Af Amer) 73.1 BUN/Creatinine Ratio 30.4 H Glucose 162 H Calcium 8.2 L Medications Administered Current Inpatient Medications Acetaminophen (Tylenol) 650 mg PO Q4H PRN PRN Reason: Pain or Fever Stop: 10/07/18 19:28 Hydrocodone Bitart/Acetaminophen ([place] 5/325) 1 tab PO Q4H PRN PRN Reason: Pain Stop: 09/21/18 19:38 Al Hydrox/Mg Hydrox/Simethicone (Maalox) 15 ml PO Q4H PRN PRN Reason: Dyspepsia Stop: 10/07/18 19:28 Albuterol (Ventolin 0.5% 2.5mg/0.5ml) 2.5 mg NEB Q2H PRN PRN Reason: SOB/Wheeze Stop: 04/28/19 19:28 Albuterol (Duoneb) 3 ml NEB Q4R [facility] Stop: 10/08/18 11:59 Last Admin: 09/11/18 11:11 Dose: 3 ml Documented by: Aspirin (Ecotrin Ectab) 81 mg PO DAILY [facility] Stop: 10/08/18 08:59 Last Admin: 09/11/18 08:21 Dose: 81 mg Documented by: Atenolol (Tenormin) 25 mg PO QAM [facility] Stop: 10/08/18 08:59 Last Admin: 09/11/18 08:20 Dose: 25 mg Documented by: Docusate Sodium (Colace) 100 mg PO BID PRN PRN Reason: Constipation Stop: 10/07/18 19:38 Duloxetine HCl (Cymbalta) [facility] Stop: 10/08/18 08:59 Last Admin: 09/11/18 08:19 Dose: 30 mg Documented by: Enoxaparin Sodium (Lovenox) 80 mg SC BID [facility] Stop: 10/08/18 11:59 Last Admin: 09/11/18 08:17 Dose: 80 mg Documented by: Furosemide (Lasix) 20 mg PO QAM [facility] Stop: 10/08/18 08:59 Last Admin: 09/11/18 08:19 Dose: 20 mg Documented by: Gabapentin (Neurontin) 100 mg PO QAM [facility] Stop: 10/08/18 08:59 Last Admin: 09/11/18 08:19 Dose: 100 mg Documented by: Piperacillin Sod/Tazobactam (Sod 3.375 gm/ Dextrose) 115 mls @ 28.75 mls/hr IV Q8H [facility]; Protocol Stop: 09/15/18 17:59 Last Infusion: 09/11/18 06:33 Dose: Infused Documented by: Methylprednisolone 40 mg/ (Syringe) 0.64 mls @ 1.5 mls/min IV Q12H [facility] Stop: 10/08/18 11:59 Last Admin: 09/10/18 23:45 Dose: 1.5 mls/min Documented by: Azithromycin 500 mg/ Dextrose 255 mls @ 125 mls/hr IV Q24H [facility] Stop: 09/16/18 15:59 Last Infusion: 09/10/18 19:26 Dose: Infused Documented by: Lactobacillus Acidophilus (Floranex) 4 tab PO TIDM [facility] Stop: 10/08/18 11:59 Last Admin: 09/11/18 08:12 Dose: 4 tab Documented by: Lisinopril (Zestril) 10 mg PO QAM [facility] Stop: 10/08/18 08:59 Last Admin: 09/11/18 08:21 Dose: 10 mg Documented by: Miscellaneous Information (Consult) 1 ea N/A UD PRN PRN Reason: Consult Stop: 10/08/18 11:28 Ondansetron HCl (Zofran) 4 mg IV Q6H PRN PRN Reason: Nausea Stop: 10/07/18 19:28 Quetiapine Fumarate (Seroquel) 25 mg PO DAILY [facility] Stop: 10/08/18 08:59 Last Admin: 09/11/18 08:20 Dose: 25 mg Documented by: Zolpidem Tartrate (Ambien) 5 mg PO HS PRN PRN Reason: Sleep Stop: 10/10/18 19:42 Last Admin: 09/10/18 21:22 Dose: 5 mg Documented by:
[2018-09-11] MEDS: methylPREDNISolone 40 MG in SYRINGE 0 ML IV SCH (12:12)
[2018-09-11] MEDS: AZITHROMYCIN 500 MG in DEXTROSE 5% 250 ML IV SCH (16:18)
[2018-09-11] MEDS: ZOLPIDEM TARTRATE 5 MG TAB PO PRN (21:57)
[2018-09-12] MEDS: methylPREDNISolone 40 MG in SYRINGE 0 ML IV SCH (00:35)
[2018-09-12] MEDS: PIPERACILLIN/TAZOBACTAM 3.375 GM in DEXTROSE 5% 100 ML IV SCH ×3 (00:38→19:55)
[2018-09-12] MEDS: ALBUT/IPRATROP 3MG/0.5MG NEB 3 ML VIAL NEB SCH ×6 (03:43→23:11)
[2018-09-12] MEDS: GABAPENTIN 100 MG CAP PO SCH (08:00)
[2018-09-12] MEDS: LISINOPRIL 10 MG TAB PO SCH (08:00)
[2018-09-12] MEDS: ASPIRIN 81 MG ECTAB PO SCH (08:00)
[2018-09-12] MEDS: FUROSEMIDE 20 MG TAB PO SCH (08:00)
[2018-09-12] MEDS: ATENOLOL 25 MG TABLET PO SCH (08:01)
[2018-09-12] MEDS: LACTOBACILLUS ACIDOPHILUS (FLORANEX) TAB PO SCH ×3 (08:01→18:42)
[2018-09-12] MEDS: DULOXETINE HCL 30 MG CAP PO SCH (08:01)
[2018-09-12] MEDS: ENOXAPARIN 80 MG/0.8 ML SYR SC SCH ×2 (08:01→21:51)
[2018-09-12] MEDS: QUETIAPINE FUMARATE 25 MG TABLET PO SCH (08:03)
--- NOTE | 2018-09-12 10:35 | Pulmonology Progress Note ---
Date of Service September 12, 2018 Assessment & Plan (1) Hypoxia: acute hypoxic respiratory failure bilateral infiltrates pneumonia vs pneumonitis vs aspiration vs ARDS on piperacillin-tazobactam and azithromycin still has significant oxygenation need but slightly improved from yesterday titrate fio2 for sat >88% possible pneumonitis on steroids. taper to daily continue supportive care. OOB as much as possible Subjective feels about the same Physical Exam Vital Signs (Past 24 Hours): Last Vital Signs Temp 36.8 C 09/12/18 06:52 Pulse 69 09/12/18 07:26 Resp 18 09/12/18 07:26 BP 113/71 09/12/18 06:52 Pulse Ox 97 09/12/18 07:26 Physical Exam: Constitutional: Comfortable NAD on high flow NC 49% satting 94- 95% HEENT: normocephalic atraumatic. MMM. CV: RRR nl s1,s2 no murmurs rubs or gallops Lungs: slight crackles bilaterally. moving air well no accessory muscle use Abd: soft nontender nondistended. Ext: no edema. no cyanosis, no edema Skin: warm dry Neuro: alert and awake. moving all extremities Psych: flat affect
--- NOTE | 2018-09-12 12:52 | Hospitalist Progress Note ---
Date of Service September 12, 2018 Assessment & Plan (1) Hypoxia: She seems in surprisingly little distress for oxygen requirements and CT scan. Continue supportive care and follow closely. Likely secondary to multilobar pneumonia considering atypical pneumonia, pneumonitis, ARDS patient speaking in complete sentences encourage OOB as much as possible, ambulate will need to titrate down on oxygen, saturation goal is 88% will need two step prior to d/c slight improvement in oxygen saturations today goal is to get her off of high flow keep on tele today, transfer tomorrow (2) Pneumonia: continue on Zosyn and Zithromax multifocal pneumonia WBC down to 12k yesterday, no fever no plans for bronchoscopy continue Steroids, taper to once daily today (3) Pneumonitis: continue Steroids slow taper on discharge Solu Medrol 40mg daily starting today (4) Hypertension: -Continue home medications, Atenolol, lisinopril, Lasix daily BP low normal, will watch closely (5) CVA (cerebral vascular accident): Patient on ASA and plavix. resume coumadin since there is no plan for bronchoscopy Code -Full per discussion with patient by admitting physician Dispo - PT/OT daniel Subjective patient breathing a little better today trying to be OOB in chair as much as she can discussed with pulmonology, appreciate their input titrated Solu Medrol to daily no labs today, yesterday they were normal eating okay, says that the food does not appeal to her had a bowel movement she is frustrated with how slowly she is improving Review of Systems All systems reviewed & are unremarkable except as noted in HPI & below Constitutional: + fatigue and + weakness; no fever, no chills and no sweats Respiratory: + cough, + dyspnea and + dyspnea on exertion; no hemoptysis, no pain with cough, no sputum production and no wheezing Cardiovascular: + edema (trace); no chest pain and no palpitations Physical Exam Vital Signs (Past 24 Hours): Last Vital Signs Temp 36.6 C 09/12/18 11:48 Pulse 58 L 09/12/18 11:48 Resp 22 09/12/18 11:48 BP 96/60 L 09/12/18 11:48 Pulse Ox 92 09/12/18 11:22 Constitutional: WD/WN, vitals as above Eyes: PERRL, conjunctivae normal, anicteric sclerae ENMT: external ear and nose normal, oropharynx normal Neck: trachea midline, no thyromegaly Respiratory: normal respiratory effort and normal percussion; no respiratory distress, no labored breathing and does not use accessory muscles Auscultation: lungs clear to auscultation bilaterally; no wheezes Cardiovascular: RRR, no murmur, no edema Gastrointestinal (Abdomen): normal bowel sounds, soft, nontender, no hepatosplenomegaly Musculoskeletal: no cyanosis or clubbing, extremities motor strength 5/5 Skin: no rashes, warm and dry Neurologic: patellar DTR's 2+ bilat, sensation intact and PERRL, EOMI, accommodation nl, no face palsy, no dysarthria Psychiatric: A+Ox3, euthymic affect Lymphatic: no cervical or axillary lymphadenopathy Results & Data Medications Administered Current Inpatient Medications Acetaminophen (Tylenol) 650 mg PO Q4H PRN PRN Reason: Pain or Fever Stop: 10/07/18 19:28 Hydrocodone Bitart/Acetaminophen ([place] 5/325) 1 tab PO Q4H PRN PRN Reason: Pain Stop: 09/21/18 19:38 Al Hydrox/Mg Hydrox/Simethicone (Maalox) 15 ml PO Q4H PRN PRN Reason: Dyspepsia Stop: 10/07/18 19:28 Albuterol (Ventolin 0.5% 2.5mg/0.5ml) 2.5 mg NEB Q2H PRN PRN Reason: SOB/Wheeze Stop: 10/07/18 19:28 Albuterol (Duoneb) 3 ml NEB Q4R [facility] Stop: 10/08/18 11:59 Last Admin: 09/12/18 11:21 Dose: 3 ml Documented by: Aspirin (Ecotrin Ectab) 81 mg PO DAILY [facility] Stop: 10/08/18 08:59 Last Admin: 09/12/18 08:00 Dose: 81 mg Documented by: Atenolol (Tenormin) 25 mg PO QAM [facility] Stop: 10/08/18 08:59 Last Admin: 09/12/18 08:01 Dose: 25 mg Documented by: Docusate Sodium (Colace) 100 mg PO BID PRN PRN Reason: Constipation Stop: 10/07/18 19:38 Dul[facility] ([facility]) [facility] Stop: 10/08/18 08:59 Last Admin: 09/12/18 08:01 Dose: 30 mg Documented by: Enoxaparin Sodium (Lovenox) 80 mg SC BID [facility] Stop: 10/08/18 11:59 Last Admin: 09/12/18 08:01 Dose: 80 mg Documented by: [facility]semide (Lasix) [facility] Stop: 10/08/18 08:59 Last Admin: 09/12/18 08:00 Dose: 20 mg Documented by: Gabapentin (Neurontin) [facility] Stop: 10/08/18 08:59 Last Admin: 09/12/18 08:00 Dose: 100 mg Documented by: Piperacillin Sod/Tazobactam (Sod 3.375 gm/ Dextrose) 115 mls @ 28.75 mls/hr IV Q8H [facility]; Protocol Stop: 09/15/18 17:59 Last Admin: 09/12/18 11:20 Dose: 28.8 mls/hr Documented by: Azithromycin 500 mg/ Dextrose 255 mls @ 125 mls/hr IV Q24H [facility] Stop: 09/16/18 15:59 Last Infusion: 09/11/18 18:45 Dose: Infused Documented by: Methylprednisolone 40 mg/ (Syringe) 0.64 mls @ 1.5 mls/min IV DAILY [facility] Stop: 10/13/18 08:59 Lactobacillus Acidophilus (Floranex) 4 tab PO TIDM [facility] Stop: 10/08/18 11:59 Last Admin: 09/12/18 12:17 Dose: 4 tab Documented by: Lisinopril (Zestril) 10 mg PO [facility] Stop: 10/08/18 08:59 Last Admin: 09/12/18 08:00 Dose: 10 mg Documented by: Miscellaneous Information (Consult) 1 ea N/A UD PRN PRN Reason: Consult Stop: 10/08/18 11:28 Ondansetron HCl (Zofran) 4 mg IV Q6H PRN PRN Reason: Nausea Stop: 10/07/18 19:28 Quetiapine Fumarate (Seroquel) 25 mg PO DAILY [facility] Stop: 10/08/18 08:59 Last Admin: 09/12/18 08:03 Dose: 25 mg Documented by: Zolpidem Tartrate (Ambien) 5 mg PO HS PRN PRN Reason: Sleep Stop: 10/10/18 19:42 Last Admin: 09/11/18 21:57 Dose: 5 mg Documented by:
[2018-09-12] MEDS: WARFARIN SOD 5 MG TAB PO SCH (15:48)
[2018-09-12] MEDS: AZITHROMYCIN 500 MG in DEXTROSE 5% 250 ML IV SCH (15:49)
[2018-09-12] MEDS: ZOLPIDEM TARTRATE 5 MG TAB PO PRN (21:51)
[2018-09-13] MEDS: PIPERACILLIN/TAZOBACTAM 3.375 GM in DEXTROSE 5% 100 ML IV SCH ×3 (02:21→22:38)
[2018-09-13] MEDS: ALBUT/IPRATROP 3MG/0.5MG NEB 3 ML VIAL NEB SCH ×6 (04:33→23:19)
[2018-09-13 06:06] LABS: INR 1.5 (0.9-1.1); Prothrombin Time 14.7 Seconds (9.0-12.0)
[2018-09-13] MEDS: GABAPENTIN 100 MG CAP PO SCH (08:41)
[2018-09-13] MEDS: methylPREDNISolone 40 MG in SYRINGE 0 ML IV SCH (08:41)
[2018-09-13] MEDS: LISINOPRIL 10 MG TAB PO SCH (08:42)
[2018-09-13] MEDS: DULOXETINE HCL 30 MG CAP PO SCH (08:42)
[2018-09-13] MEDS: ASPIRIN 81 MG ECTAB PO SCH (08:42)
[2018-09-13] MEDS: ATENOLOL 25 MG TABLET PO SCH (08:43)
[2018-09-13] MEDS: LACTOBACILLUS ACIDOPHILUS (FLORANEX) TAB PO SCH ×3 (08:43→17:16)
[2018-09-13] MEDS: ENOXAPARIN 80 MG/0.8 ML SYR SC SCH ×2 (08:44→19:44)
[2018-09-13] MEDS: FUROSEMIDE 20 MG TAB PO SCH (08:44)
[2018-09-13] MEDS: QUETIAPINE FUMARATE 25 MG TABLET PO SCH (08:45)
--- NOTE | 2018-09-13 11:32 | XRay Report ---
TWO VIEW CHEST CLINICAL HISTORY: Follow-up pneumonia. FINDINGS: AP and lateral chest radiographs are compared to study dated 09/09/2018 and correlated with chest CT dated 09/08/2018. The AP view is degraded by patient rotation. The heart is enlarged and ther e is atherosclerotic calcification of the thoracic aorta. There is a large hiatal hernia. There is d iffuse/multifocal airspace consolidation. This is increasingly confluent as compared to 09/09/2018. Th ere are trace pleural effusions. There is no pneumothorax. The skeletal structures are osteopenic. Ad vanced degenerative change and hyperkyphosis is noted in the thoracic spine. A compression deformity is seen in the upper lumbar region. Advanced arthritic change and deformity is noted in the shoulders . IMPRESSION: 1. There is diffuse/multifocal airspace consolidation. This is increasingly confluent as compared to 09/09/2018. 2. Cardiomegaly and small pleural effusions. 3. Large hiatal hernia. Electronically signed by: Paul Dennis M.D. 09/13/2018 11:30 AM
--- NOTE | 2018-09-13 11:34 | Pulmonology Progress Note ---
Date of Service September 13, 2018 Assessment & Plan (1) Hypoxia: acute hypoxic respiratory failure bilateral infiltrates pneumonia vs pneumonitis vs aspiration vs ARDS on piperacillin-tazobactam and azithromycin. can stop azithromycin greatly improving o2 needs titrate fio2 for sat >88% possible pneumonitis on steroids. taper to daily for 3 more days then stop continue supportive care. OOB as much as possible Subjective feels about the same Physical Exam Vital Signs (Past 24 Hours): Last Vital Signs Temp 37.0 C 09/13/18 07:05 Pulse 62 09/13/18 07:21 Resp 18 09/13/18 07:21 BP 113/77 09/13/18 07:05 Pulse Ox 96 09/13/18 07:21 Physical Exam: Constitutional: Comfortable NAD on simple face mask 35% HEENT: normocephalic atraumatic. MMM. CV: RRR nl s1,s2 no murmurs rubs or gallops Lungs: lungs clear to ausculation bilaterally. moving air well no accessory muscle use Abd: soft nontender nondistended. Ext: no edema. no cyanosis, no edema Skin: warm dry Neuro: alert and awake. moving all extremities Psych: flat affect
[2018-09-13] MEDS ORDERED: FUROSEMIDE 40 MG TAB PO ONE (12:00)
--- NOTE | 2018-09-13 12:01 | Hospitalist Progress Note ---
Date of Service September 13, 2018 Assessment & Plan (1) Hypoxia: She seems in surprisingly little distress for oxygen requirements and CT scan. Continue supportive care and follow closely. Likely secondary to multilobar pneumonia considering atypical pneumonia, pneumonitis, ARDS patient speaking in complete sentences encourage OOB as much as possible, ambulate will need to titrate down on oxygen, saturation goal is 88% will need two step prior to d/c titrated to 6L nasal canula this morning continue to try to titrate further will give extra lasix, try to keep lungs dry (2) Pneumonia: continue on Zosyn and Zithromax multifocal pneumonia CXR on 09/13 shows worsening consolidation compared to 09/09 consistent with pneumonitis, could consider ARDS but would think her hypoxia would be more profound despite appearance of CXR, doing better clinically check CBC tomorrow no plans for bronchoscopy continue Steroids at once daily (3) Pneumonitis: continue Steroids slow taper on discharge Solu Medrol 40mg daily starting today lasix 40mg daily to try to keep lungs dry (4) Hypertension: -Continue home medications, Atenolol, lisinopril, Lasix daily (increase to 40mg) BP low normal, will watch closely (5) CVA (cerebral vascular accident): Patient on ASA and plavix. resume coumadin since there is no plan for bronchoscopy follow INR daily, stop Lovenox once therapeutic Code -Full per discussion with patient by admitting physician Dispo - PT/OT daniel Subjective patient titrated off of high flow nasal canula this morning, breathing well with mask says she feels really fatigued, tired of being in the hospital says food does not taste good her daughter mentioned possible thrush because the patient's other daughter noticed some white plaque when changing dentures examined mouth and throat, she has thrush chest x-ray, 2 views this morning, shows more consolidation bilaterally, small pleural effusions urinating normally and moving bowels participating in therapy, trying to be upright as much as possible Review of Systems All systems reviewed & are unremarkable except as noted in HPI & below Constitutional: + fatigue and + weakness; no fever, no chills and no sweats Respiratory: + cough, + dyspnea and + dyspnea on exertion; no hemoptysis, no pain with cough, no sputum production and no wheezing Cardiovascular: + edema (trace); no chest pain and no palpitations Gastrointestinal: + problem reported (poor appetite); no abdominal pain, no nausea, no vomiting, no constipation and no diarrhea/loose stools Physical Exam Vital Signs (Past 24 Hours): Last Vital Signs Temp 37.0 C 09/13/18 07:05 Pulse 62 09/13/18 07:21 Resp 18 09/13/18 07:21 BP 113/77 09/13/18 07:05 Pulse Ox 96 09/13/18 07:21 Constitutional: WD/WN, vitals as above Eyes: PERRL, conjunctivae normal, anicteric sclerae ENMT: Mouth: + oropharynx abnormality (white plaque consistent with thrush) Neck: trachea midline, no thyromegaly Respiratory: normal respiratory effort and normal percussion; no respiratory distress, no labored breathing and does not use accessory muscles Auscultat ion: lungs clear to auscultation bilaterally; no wheezes Cardiovascular: RRR, no murmur, no edema Gastrointestinal (Abdomen): normal bowel sounds, soft, nontender, no hepatosplenomegaly Musculoskeletal: no cyanosis or clubbing, extremities motor strength 5/5 Skin: no rashes, warm and dry Neurologic: patellar DTR's 2+ bilat, sensation intact and PERRL, EOMI, accommodation nl, no face palsy, no dysarthria Psychiatric: A+Ox3, euthymic affect Lymphatic: no cervical or axillary lymphadenopathy Results & Data Laboratory Results Laboratory Results - last 24 hr 09/13/18 05:33 PT 14.7 H INR 1.5 H Diagnostic Findings TWO VIEW CHEST CLINICAL HISTORY: Follow-up pneumonia. FINDINGS: AP and lateral chest radiographs are compared to study dated 09/09/2018 and correlated with chest CT dated 09/08/2018. The AP view is degraded by patient rotation. The heart is enlarged and there is atherosclerotic calcification of the thoracic aorta. There is a large hiatal hernia. There is diffuse/multifocal airspace consolidation. This is increasingly confluent as compared to 09/09/2018. There are trace pleural effusions. There is no pneumothorax. The skeletal structures are osteopenic. Advanced degenerative change and hyperkyphosis is noted in the thoracic spine. A compression deformity is seen in the upper lumbar region. Advanced arthritic change and deformity is noted in the shoulders. IMPRESSION: 1. There is diffuse/multifocal airspace consolidation. This is increasingly confluent as compared to 09/09/2018. 2. Cardiomegaly and small pleural effusions. 3. Large hiatal hernia. Medications Administered Current Inpatient Medications Acetaminophen (Tylenol) 650 mg PO Q4H PRN PRN Reason: Pain or Fever Stop: 10/07/18 19:28 Hydrocodone Bitart/Acetaminophen ([place] 5/325) 1 tab PO Q4H PRN PRN Reason: Pain Stop: 09/21/18 19:38 Al Hydrox/Mg Hydrox/Simethicone (Maalox) 15 ml PO Q4H PRN PRN Reason: Dyspepsia Stop: 10/07/18 19:28 Albuterol (Ventolin 0.5% 2.5mg/0.5ml) 2.5 mg NEB Q2H PRN PRN Reason: SOB/Wheeze Stop: 10/07/18 19:28 Albuterol (Duoneb) 3 ml NEB Q4R [facility] Stop: 10/08/18 11:59 Last Admin: 09/13/18 11:24 Dose: Not Given Documented by: Aspirin (Ecotrin Ectab) 81 mg PO DAILY [facility] Stop: 10/08/18 08:59 Last Admin: 09/13/18 08:42 Dose: 81 mg Documented by: [facility]) [facility] [place]: 10/08/18 08:59 Last Admin: 09/13/18 08:43 Dose: 25 mg Documented by: Docusate Sodium (Colace) 100 mg PO BID PRN PRN Reason: Constipation Stop: 10/07/18 19:38 Duloxetine HCl (Cymbalta) [facility] [place]: 10/08/18 08:59 Last Admin: 09/13/18 08:42 Dose: 30 mg Documented by: Enoxaparin Sodium (Lovenox) 80 mg SC BID [facility] Stop: 10/08/18 11:59 Last Admin: 09/13/18 08:44 Dose: 80 mg Documented by: Furosemide (Lasix) 40 mg PO NOW ONE Stop: 09/13/18 12:01 Furosemide (Lasix) [facility] [place]: 10/14/18 08:59 Gabapentin (Neurontin) 100 [facility] [place]: 10/08/18 08:59 Last Admin: 09/13/18 08:41 Dose: 100 mg Documented by: Piperacillin Sod/Tazobactam (Sod 3.375 gm/ Dextrose) 115 mls @ 28.75 mls/hr IV Q8H [facility]; Protocol Stop: 09/15/18 17:59 Last Infusion: 09/13/18 06:41 Dose: Infused Documented by: Azithromycin 500 mg/ Dextrose 255 mls @ 125 mls/hr IV Q24H [facility] Stop: 09/16/18 15:59 Last Infusion: 09/12/18 19:47 Dose: Infused Documented by: Methylprednisolone 40 mg/ (Syringe) 0.64 mls @ 1.5 mls/min IV DAILY [facility] Stop: 10/13/18 08:59 Last Admin: 09/13/18 08:41 Dose: 1.5 mls/min Documented by: Lactobacillus Acidophilus (Floranex) 4 tab PO TIDM [facility] Stop: 10/08/18 11:59 Last Admin: 09/13/18 08:43 Dose: 4 tab Documented by: Lisinopril (Zestril) 10 mg PO QAM [facility] Stop: 10/08/18 08:59 Last Admin: 09/13/18 08:42 Dose: 10 mg Documented by: Miscellaneous Information (Consult) 1 ea N/A UD PRN PRN Reason: Consult Stop: 10/08/18 11:28 Nystatin (Mycostatin) 10 ml PO QID [facility] Stop: 09/23/18 12:59 Ondansetron HCl (Zofran) 4 mg IV Q6H PRN PRN Reason: Nausea Stop: 10/07/18 19:28 Quetiapine Fumarate (Seroquel) 25 mg PO DAILY [facility] Stop: 10/08/18 08:59 Last Admin: 09/13/18 08:45 Dose: 25 mg Documented by: Warfarin Sodium (Coumadin) 5 mg PO DAILY@1600 [facility] Stop: 10/12/18 15:59 Last Admin: 09/12/18 15:48 Dose: 5 mg Documented by: Zolpidem Tartrate (Ambien) 5 mg PO HS PRN PRN Reason: Sleep Stop: 10/10/18 19:42 Last Admin: 09/12/18 21:51 Dose: 5 mg Documented by:
[2018-09-13] MEDS: NYSTATIN SUSP 500,000 U/5 ML UDC PO SCH ×3 (12:43→19:45)
[2018-09-13] MEDS ORDERED: AZITHROMYCIN 500 MG in DEXTROSE 5% 250 ML IV SCH (16:00)
[2018-09-13] MEDS: WARFARIN SOD 5 MG TAB PO SCH (17:17)
[2018-09-13] MEDS: ZOLPIDEM TARTRATE 5 MG TAB PO PRN (22:02)
[2018-09-14] MEDS: ALBUT/IPRATROP 3MG/0.5MG NEB 3 ML VIAL NEB SCH ×5 (03:33→19:00)
[2018-09-14] MEDS: PIPERACILLIN/TAZOBACTAM 3.375 GM in DEXTROSE 5% 100 ML IV SCH ×3 (06:26→21:36)
[2018-09-14 07:30] LABS: Basophils # (auto) 0.01 K/uL (0-0.2); Basophils % (auto) 0.1 %; Eosinophils # (auto) 0.25 K/uL (0-0.5); Eosinophils % (auto) 1.5 %; Hematocrit (blood only) 30.9 % (37-47); Hemoglobin 10.8 g/dL (12.0-16.0); Immature Granulocytes # (auto) 0.05 K/uL (0.00-0.02); Immature Granulocytes % (auto) 0.3 %; Lymphocytes % (auto) 6.7 %; Mean Corpuscular Volume 89.6 fL (80-100); Monocytes # (auto) 0.61 K/uL (0.11-0.59); Monocytes % (auto) 3.7 %; Neutrophils # (auto) 14.37 K/uL (1.4-6.5); Neutrophils % (auto) 87.7 %; Platelet Count 363 K/uL (130-400); RDW Coefficient of Variation 12.8 % (11.5-14.5); RDW Standard Deviation 41.3 fL (36.4-46.3); Red Blood Count 3.45 M/uL (4.2-5.4); White Blood Count 16.39 K/uL (4.8-10.8)
[2018-09-14] MEDS: ATENOLOL 25 MG TABLET PO SCH (07:32)
[2018-09-14] MEDS: LISINOPRIL 10 MG TAB PO SCH (07:32)
[2018-09-14] MEDS: GABAPENTIN 100 MG CAP PO SCH (07:33)
[2018-09-14] MEDS: ENOXAPARIN 80 MG/0.8 ML SYR SC SCH (07:33)
[2018-09-14] MEDS: QUETIAPINE FUMARATE 25 MG TABLET PO SCH (07:33)
[2018-09-14] MEDS: DULOXETINE HCL 30 MG CAP PO SCH (07:33)
[2018-09-14] MEDS: LACTOBACILLUS ACIDOPHILUS (FLORANEX) TAB PO SCH ×4 (07:33→18:56)
[2018-09-14] MEDS: NYSTATIN SUSP 500,000 U/5 ML UDC PO SCH ×4 (07:34→21:36)
[2018-09-14] MEDS: methylPREDNISolone 40 MG in SYRINGE 0 ML IV SCH (07:34)
[2018-09-14] MEDS: ASPIRIN 81 MG ECTAB PO SCH (07:34)
[2018-09-14 07:55] LABS: INR 2.7 (0.9-1.1); Prothrombin Time 25.6 Seconds (9.0-12.0)
[2018-09-14 08:02] LABS: BUN Creatinine Ratio 41.2 (10-20); Calcium 7.9 mg/dl (8.5-10.1); Creatinine Clr Calc Pharmacy 80.4 ml/min; Est GFR (African American) 101.2; Est GFR (Non-African American) 87.4; Potassium 3.6 mmol/L (3.5-5.1)
[2018-09-14] MEDS ORDERED: FUROSEMIDE 40 MG TAB PO SCH (09:00)
--- NOTE | 2018-09-14 09:52 | Gastrointestinal Consultation ---
Date of Consultation September 14, 2018 Assessment & Plan (1) Hematochezia: (2) Hypoxia: (3) Pneumonia: Patient is a 82 yo female admitted with hypoxia and acute respiratory failure related to an acute respiratory process now with hematochezia in the setting of starting Coumadin. 1. No plan for invasive GI work up given acute respiratory comorbidities at this time. 2. Consider holding Coumadin as this is the likely cause of her acute bleeding. 3. Continue Protonix 40 mg IV BID. 4. Supportive care. 5. Notify the clerk television production over the weekend if the patient has significant bleeding or drop in H&H. Thank you for allowing us to participate in the care of this patient. If you have any questions or concerns, please do not hesitate to contact us. Supervising Physician Co-Signing Physician Notes Agree with BLANCA Padilla as above Abd: Soft, NT, ND Nursing reports patient with multiple melenic stools today Continue Pantoprazole 40 mg IV BID Add carafate 1 g PO QID AC AND HS x 10 days. Vitamin K given to reverse supratherapeutic INR No plans for invasive workup secondary to multiple medical comorbidities including severe pulmonary disease. Patient listed as full code, but family at bedside states she has a living will, and should be a "DNR/DNI" History of Present Illness Reason for Consultation: Hematochezia Requesting Physician: Dr. Ta Attending Physician: Emeterio Ta, History of Present Illness Patient is 82 year-old female with a history of progressive shortness of breath which prompted evaluation at [facility] on 09/03/18. She was admitted with pneumonia and requested transfer to [facility] due to lack of symptom improvement during her hospitalization and to seek a pulmonary medicine consultation. She has been admitted since 09/07/18. From review of CT imaging, she has bilateral airspace opacities consistent with pneumonia or another acute process. Pulmonology has evaluated the patient and has considered pneumonia vs pneumonitis vs ARDS or aspiration as potential etiologies for the patient's hypoxia and acute respiratory failure. Serial imaging has demonstrated progressive changes left>right. No plan for bronchoscopy. Patient reports she remains quite short of breath but denies any chest pains or palpitations. She further denies any abdominal pain, nausea or vomiting, or other GI symptoms. Per nursing, she developed bright red blood in stool and was noted to have blood this morning in a bm which has prompted GI consultation. It appears this is in the setting of initiation of Coumadin within the past 2 days. She did have an INR of 1.5 yesterday and was noted to be 2.7 today. Her H&H since admission has been [id number] and was 10.8 this morning. Remains on BID PPI. Allergies Allergy/AdvReac Type Severity Reaction Status Date / Time No Known Allergies Allergy Unverified 09/07/18 18:57 Patient History Medical History CVA (cerebral vascular accident) Hyperlipidemia Hypertension Surgical History S/P cataract extraction Family History Other Family history non-contributory Social History Communication Ability: Effective Beliefs That Will Affect Care: None Current Living Situation: Spouse Other Information That Helps Us Care for You: No Feels Safe at Home: Yes Safety Concerns: Feels Safe At This Time Smoking Status: Never smoker Hx Alcohol Use: No Hx Substance Use: No Review of Systems Constitutional: + weakness; no fever and no chills Eyes: no problem reported Ear, Nose, Mouth, Throat: no problem reported Respiratory: as per Subjective / HPI Cardiovascular: as per Subjective / HPI Gastrointestinal: as per Subjective / HPI Musculoskeletal: no problem reported Integumentary: no problem reported Neurologic: no problem reported Psychiatric: no problem reported Physical Exam Vital Signs (Past 24 Hours): Last Vital Signs Temp 36.6 C 09/14/18 07:31 Pulse 91 H 09/14/18 07:31 Resp 20 09/14/18 07:31 BP 113/75 09/14/18 07:31 Pulse Ox 90 09/14/18 07:31 Constitutional: WD/WN, vitals as above Eyes: EOM intact bilaterally ENMT: normal appearance Respiratory: + labored breathing and + abnormal respiratory pattern Auscultation: + rales (bilateral LLL) Cardiovascular: Rate/Rhythm: regular rate and regular rhythm Gastrointestinal (Abdomen): normal bowel sounds, soft, nontender, no hepatosplenomegaly patient refused rectal examination Musculoskeletal: mild pedal edema Skin: no rashes, warm and dry Psychiatric: A+Ox3, euthymic affect Results & Data Laboratory Results Abnormal lab results 09/14/18 09/14/18 09/14/18 Range/Units 07:00 07:00 07:00 WBC 16.39 H (4.8-10.8) K/uL RBC 3.45 L (4.2-5.4) M/uL Hgb 10.8 L (12.0-16.0) g/dL Hct 30.9 L (37-47) % Immature Gran # (Auto) 0.05 H (0.00-0.02) K/uL Neut # (Auto) 14.37 H (1.4-6.5) K/uL Lymph # (Auto) 1.10 L (1.2-3.4) K/uL Early # (Auto) 0.61 H (0.11-0.59) K/uL PT 25.6 H (9.0-12.0) Seconds INR 2.7 H (0.9-1.1) Sodium 130 L (136-145) mmol/L Chloride 93 L (98-107) mmol/L BUN 23 H (7-18) mg/dl Creatinine 0.55 L (0.6-1.2) mg/dl BUN/Creatinine Ratio 41.2 H (10-20) Glucose 147 H (70-99) mg/dl Calcium 7.9 L (8.5-10.1) mg/dl
[2018-09-14] MEDS: PANTOprazole 40 MG in SYRINGE 0 ML IV SCH ×2 (10:25→21:36)
[2018-09-14] MEDS ORDERED: SODIUM CHLORIDE 0.9% 250 ML IV PRN (11:26)
--- NOTE | 2018-09-14 11:40 | Hospitalist Progress Note ---
Date of Service September 14, 2018 Assessment & Plan (1) Hypoxia: She seems in surprisingly little distress for oxygen requirements and CT scan. Continue supportive care and follow closely. Likely secondary to multilobar pneumonia considering atypical pneumonia, pneumonitis, ARDS patient speaking in complete sentences encourage OOB as much as possible, ambulate will need to titrate down on oxygen, saturation goal is 88% back on HFNC with 50% FiO2 today still no distress really difficult time titrating off of oxygen she is using ISB, flutter valve (2) Pneumonia: continue Zosyn IV for now, today is day 7 Zithromax stopped multifocal pneumonia on CXR could be viral pneumonia given failure to improve on antibiotics procalcitonin only 0.2 today CXR on 09/13 shows worsening consolidation compared to 09/09 consistent with pneumonitis, could consider ARDS but would think her hypoxia would be more profound tried to increase Lasix to 40mg daily but no increase in urine output (3) Hematochezia: unclear etiology, started this morning INR noted to be therapeutic at 2.3 Vitamin K 5mg IV given, Lovenox stopped (last dose was last night at midnight) no plans for scopes due to hypoxia treat with Protonix transfuse as needed (4) Acute blood loss anemia: Hb down to 9.6 this morning from 10.8 repeat Hb was 9.5 this afternoon despite several bloody bowel movements type and cross for two units patient consented for transfusion if needed, no need currently (5) Pneumonitis: continue Steroids slow taper on discharge Solu Medrol 40mg daily (6) Hypertension: BP low normal, with bleeding will hold Atenolol and Lisinopril hold Lasix as well (7) CVA (cerebral vascular accident): Patient on ASA and plavix will hold due to bleeding stop Lovenox and Coumadin as well Code -Full per discussion with patient by admitting physician Dispo - PT/OT daniel Subjective patient started with hematochezia this morning, no abdominal pain moved bowels several times, red blood per RN BP stable INR is therapeutic on Coumadin had GI see the patient, with her respiratory status she is not a candidate for scopes recommend Protonix, hold Coumadin and monitor H/H will repeat H/H stat - Hb 9.6 from 10.8 repeated later in the afternoon, stable at 9.5 procalcitonin low at 0.21 needed to be placed back on HFNC, 50% FiO2, no respiratory distress, says she is comfortable discussed with pulmonology, appreciate their input discussed with family extensively at the bedside unclear why her lungs are not improving, could be viral pneumonia since no improvement with antibiotics patient consented for blood if needed visited with patient three times today Review of Systems All systems reviewed & are unremarkable except as noted in HPI & below Respiratory: + cough, + dyspnea and + dyspnea on exertion; no pain with cough, no snoring, no sputum production and no wheezing Gastrointestinal: + blood in stools; no abdominal pain, no nausea, no vomiting, no constipation and no diarrhea/loose stools Physical Exam Vital Signs (Past 24 Hours): Last Vital Signs Temp 36.6 C 09/14/18 07:31 Pulse 71 09/14/18 11:07 Resp 20 09/14/18 11:07 BP 113/75 09/14/18 07:31 Pulse Ox 95 09/14/18 11:07 Constitutional: WD/WN, vitals as above + ill appearing and + frail appearing Eyes: PERRL, conjunctivae normal, anicteric sclerae ENMT: external ear and nose normal, oropharynx normal Mouth: + oropharynx abnormality (white plaque consistent with thrush) Neck: trachea midline, no thyromegaly Respiratory: normal respiratory effort and normal percussion; no respiratory distress, no labored breathing and does not use accessory muscles Auscultatio n: lungs clear to auscultation bilaterally; no wheezes Cardiovascular: RRR, no murmur, no edema Gastrointestinal (Abdomen): normal bowel sounds, soft, nontender, no hepatosplenomegaly Musculoskeletal: no cyanosis or clubbing, extremities motor strength 5/5 Skin: no rashes, warm and dry Neurologic: patellar DTR's 2+ bilat, sensation intact and PERRL, EOMI, accommodation nl, no face palsy, no dysarthria Psychiatric: A+Ox3, euthymic affect Lymphatic: no cervical or axillary lymphadenopathy Results & Data Laboratory Results Laboratory Results - last 24 hr 09/14/18 09/14/18 09/14/18 07:00 07:00 07:00 WBC 16.39 H RBC 3.45 L Hgb 10.8 L Hct 30.9 L MCV 89.6 MCH 31.3 MCHC 35.0 RDW Std Deviation 41.3 RDW Coeff of Chris 12.8 Plt Count 363 MPV 9.0 Immature Gran % (Auto) 0.3 Neut % (Auto) 87.7 Lymph % (Auto) 6.7 Keith % (Auto) 3.7 Eos % (Auto) 1.5 Baso % (Auto) 0.1 Immature Gran # (Auto) 0.05 H Neut # (Auto) 14.37 H Lymph # (Auto) 1.10 L Keith # (Auto) 0.61 H Eos # (Auto) 0.25 Baso # (Auto) 0.01 PT 25.6 H INR 2.7 H Sodium 130 L Potassium 3.6 Chloride 93 L Carbon Dioxide 32 Anion Gap 6.0 BUN 23 H Creatinine 0.55 L Est Cr Clr Drug Dosing 80.4 Est GFR ( Amer) 101.2 Est GFR (Non-Af Amer) 87.4 BUN/Creatinine Ratio 41.2 H Glucose 147 H Calcium 7.9 L Stool Occult Bld Scrn 09/14/18 11:02 WBC RBC Hgb Hct MCV MCH MCHC RDW Std Deviation RDW Coeff of Chris Plt Count MPV Immature Gran % (Auto) Neut % (Auto) Lymph % (Auto) Keith % (Auto) Eos % (Auto) Baso % (Auto) Immature Gran # (Auto) Neut # (Auto) Lymph # (Auto) Keith # (Auto) Eos # (Auto) Baso # (Auto) PT INR Sodium Potassium Chloride Carbon Dioxide Anion Gap BUN Creatinine Est Cr Clr Drug Dosing Est GFR ( Amer) Est GFR (Non-Af Amer) BUN/Creatinine Ratio Glucose Calcium Stool Occult Bld Scrn Positive H Medications Administered Current Inpatient Medications Acetaminophen (Tylenol) 650 mg PO Q4H PRN PRN Reason: Pain or Fever Stop: 10/07/18 19:28 Hydrocodone Bitart/Acetaminophen ([place] 5/325) 1 tab PO Q4H PRN PRN Reason: Pain Stop: 09/21/18 19:38 Al Hydrox/Mg Hydrox/Simethicone (Maalox) 15 ml PO Q4H PRN PRN Reason: Dyspepsia Stop: 10/07/18 19:28 Albuterol (Ventolin 0.5% 2.5mg/0.5ml) 2.5 mg NEB Q2H PRN PRN Reason: SOB/Wheeze Stop: 10/07/18 19:28 Albuterol (Duoneb) 3 ml NEB Q4R [facility] Stop: 10/08/18 11:59 Last Admin: 09/14/18 11:07 Dose: 3 ml Documented by: Aspirin (Ecotrin Ectab) 81 mg PO DAILY [facility] Stop: 10/08/18 08:59 Last Admin: 09/14/18 07:34 Dose: 81 mg Documented by: Atenolol (Tenormin) 25 mg PO QAM [facility] Stop: 10/08/18 08:59 Last Admin: 09/14/18 07:32 Dose: 25 mg Documented by: Docusate Sodium (Colace) 100 mg PO BID PRN PRN Reason: Constipation Stop: 10/07/18 19:38 Duloxetine HCl (Cymbalta) 30 mg PO QAM [facility] Stop: 10/08/18 08:59 Last Admin: 09/14/18 07:33 Dose: 30 mg Documented by: Furosemide (Lasix) 20 mg PO QAM [facility] Stop: 10/15/18 08:59 Gabapentin (Neurontin) 100 mg PO QAM [facility] Stop: 10/08/18 08:59 Last Admin: 09/14/18 07:33 Dose: 100 mg Documented by: Piperacillin Sod/Tazobactam (Sod 3.375 gm/ Dextrose) 115 mls @ 28.75 mls/hr IV Q8H [facility]; Protocol Stop: 09/14/18 23:59 Last Infusion: 09/14/18 10:26 Dose: Infused Documented by: Methylprednisolone 40 mg/ (Syringe) 0.64 mls @ 1.5 mls/min IV DAILY [facility] Stop: 10/13/18 08:59 Last Admin: 09/14/18 07:34 Dose: 1.5 mls/min Documented by: Pantoprazole Sodium 40 mg/ (Syringe) 10 mls @ 5 mls/min IV BID [facility] Stop: 10/14/18 10:59 Last Admin: 09/14/18 10:25 Dose: 5 mls/min Documented by: Sodium Chloride (Nss) 250 mls @ 15 mls/hr IV .[id number] PRN PRN Reason: For Transfusion Stop: 10/14/18 11:25 Phytonadione 5 mg/ Sodium (Chloride) 50.5 mls @ 101 mls/hr IV TODAY@1200 [facility] Stop: 09/14/18 12:29 Lactobacillus Acidophilus (Floranex) 4 tab PO TIDM [facility] Stop: 10/08/18 11:59 Last Admin: 09/14/18 07:33 Dose: 4 tab Documented by: Lisinopril (Zestril) 10 mg PO QAM [facility] Stop: 10/08/18 08:59 Last Admin: 09/14/18 07:32 Dose: 10 mg Documented by: Miscellaneous Information (Consult) 1 ea N/A UD PRN PRN Reason: Consult Stop: 09/14/18 23:59 Nystatin (Mycostatin) 10 ml PO QID [facility] Stop: 09/23/18 12:59 Last Admin: 09/14/18 07:34 Dose: 10 ml Documented by: Ondansetron HCl (Zofran) 4 mg IV Q6H PRN PRN Reason: Nausea Stop: 10/07/18 19:28 Quetiapine Fumarate (Seroquel) 25 mg PO DAILY [facility] Stop: 10/08/18 08:59 Last Admin: 09/14/18 07:33 Dose: 25 mg Documented by: Zolpidem Tartrate (Ambien) 5 mg PO HS PRN PRN Reason: Sleep Stop: 10/10/18 19:42 Last Admin: 09/13/18 22:02 Dose: 5 mg Documented by:
[2018-09-14 11:44] LABS: Hematocrit (blood only) 28.2 % (37-47); Hemoglobin 9.6 g/dL (12.0-16.0)
[2018-09-14] MEDS ORDERED: PHYTONADIONE 5 MG in SODIUM CHLORIDE 0.9% 50 ML IV ONE (12:00)
[2018-09-14 16:44] LABS: Hematocrit (blood only) 27.6 % (37-47); Hemoglobin 9.5 g/dL (12.0-16.0)
--- NOTE | 2018-09-14 17:11 | Pulmonology Progress Note ---
Date of Service September 14, 2018 Assessment & Plan (1) Hypoxia: acute hypoxic respiratory failure bilateral infiltrates pneumonia vs pneumonitis vs aspiration vs ARDS on piperacillin-tazobactam and azithromycin. can stop azithromycin worsened sats compared to yesterday but overall still improved titrate fio2 for sat >88% possible pneumonitis on steroids. if continues to worsen o2 requirements will increase steroids again continue supportive care. OOB as much as possible Subjective feels about the same oxygenation worse requiring 60% high flow Physical Exam Vital Signs (Past 24 Hours): Last Vital Signs Temp 36.6 C 09/14/18 16:05 Pulse 79 09/14/18 16:05 Resp 18 09/14/18 16:05 BP 92/61 L 09/14/18 16:05 Pulse Ox 89 L 09/14/18 16:05 Physical Exam: Constitutional: Comfortable NAD on simple face mask 35% HEENT: normocephalic atraumatic. MMM. CV: RRR nl s1,s2 no murmurs rubs or gallops Lungs: crackles bilaterally. moving air well no accessory muscle use Abd: soft nontender nondistended. Ext: no edema. no cyanosis, no edema Skin: warm dry Neuro: alert and awake. moving all extremities Psych: normal mood and affect
[2018-09-14] MEDS: ZOLPIDEM TARTRATE 5 MG TAB PO PRN (21:36)
[2018-09-15] MEDS: ALBUT/IPRATROP 3MG/0.5MG NEB 3 ML VIAL NEB SCH ×7 (00:12→23:37)
[2018-09-15] MEDS: PIPERACILLIN/TAZOBACTAM 3.375 GM in DEXTROSE 5% 100 ML IV SCH ×2 (05:40→15:16)
[2018-09-15 06:54] LABS: Basophils # (auto) 0.01 K/uL (0-0.2); Eosinophils # (auto) 0.07 K/uL (0-0.5); Eosinophils % (auto) 0.3 %; Hematocrit (blood only) 22.5 % (37-47); Hemoglobin 7.8 g/dL (12.0-16.0); Immature Granulocytes # (auto) 0.11 K/uL (0.00-0.02); Immature Granulocytes % (auto) 0.5 %; Lymphocytes # (auto) 1.01 K/uL (1.2-3.4); Lymphocytes % (auto) 4.6 %; Mean Corpuscular Hgb Conc 34.7 g/dL (32-36); Mean Corpuscular Volume 88.9 fL (80-100); Mean Platelet Volume 9.2 fL (7.4-10.4); Monocytes # (auto) 0.68 K/uL (0.11-0.59); Monocytes % (auto) 3.1 %; Neutrophils # (auto) 19.89 K/uL (1.4-6.5); Neutrophils % (auto) 91.5 %; Platelet Count 332 K/uL (130-400); RDW Coefficient of Variation 12.9 % (11.5-14.5); RDW Standard Deviation 41.7 fL (36.4-46.3); Red Blood Count 2.53 M/uL (4.2-5.4); White Blood Count 21.77 K/uL (4.8-10.8)
[2018-09-15 07:01] LABS: INR 1.1 (0.9-1.1); Prothrombin Time 11.4 Seconds (9.0-12.0)
[2018-09-15 07:10] LABS: BUN Creatinine Ratio 49.2 (10-20); Calcium 7.9 mg/dl (8.5-10.1); Est GFR (African American) 94.9; Est GFR (Non-African American) 81.9; Potassium 3.3 mmol/L (3.5-5.1)
[2018-09-15] MEDS: NYSTATIN SUSP 500,000 U/5 ML UDC PO SCH ×3 (07:44→16:16)
[2018-09-15] MEDS: DULOXETINE HCL 30 MG CAP PO SCH (07:46)
[2018-09-15] MEDS: QUETIAPINE FUMARATE 25 MG TABLET PO SCH (07:46)
[2018-09-15] MEDS: methylPREDNISolone 40 MG in SYRINGE 0 ML IV SCH (07:46)
[2018-09-15] MEDS: PANTOprazole 40 MG in SYRINGE 0 ML IV SCH ×2 (07:46→22:54)
[2018-09-15] MEDS: LACTOBACILLUS ACIDOPHILUS (FLORANEX) TAB PO SCH ×3 (07:47→16:16)
[2018-09-15] MEDS: GABAPENTIN 100 MG CAP PO SCH (07:47)
[2018-09-15] MEDS ORDERED: FUROSEMIDE 20 MG TAB PO SCH (09:00)
--- NOTE | 2018-09-15 09:45 | Hospitalist Progress Note ---
Date of Service September 15, 2018 Assessment & Plan (1) Hypoxia: Likely secondary to multilobar pneumonia considering atypical pneumonia, pneumonitis, ARDS could consider viral pneumonia given lack of response to antibiotics patient more dyspneic today, slightly more distressed requiring more FiO2 today patient is getting fatigued she is using ISB, flutter valve (2) Pneumonia: continue Zosyn IV for now, today is day 8 Zithromax stopped multifocal pneumonia on CXR could be viral pneumonia given failure to improve on antibiotics procalcitonin only 0.2 today CXR on 09/13 shows worsening consolidation compared to 09/09 consistent with pneumonitis, could consider ARDS but would think her hypoxia would be more profound tried to increase Lasix to 40mg daily but no increase in urine output (3) Hematochezia: unclear etiology, started this morning INR noted to be therapeutic at 2.3 on 09/14, INR is down to 1.1 this morning after Vitamin K no plans for scopes due to hypoxia treat with Protonix transfuse as needed (4) Acute blood loss anemia: Hb down to 7.8 this morning, was 9.5 yesterday type and cross for two units patient consented for transfusion if needed, no need currently only transfuse if necessary, worried that blood could make breathing worse (5) Pneumonitis: continue Steroids likely increase dose today per pulmonology (6) Hypertension: BP low normal, with bleeding will hold Atenolol and Lisinopril hold Lasix as well (7) CVA (cerebral vascular accident): Patient on ASA and plavix will hold due to bleeding stop Lovenox and Coumadin as well Code -Full per discussion with patient by admitting physician Dispo - PT/OT daniel (8) Oral thrush: responding well to Nystatin S/S Subjective patient more fatigued today, having to increase FiO2 over night slightly more distressed today, coughing but no sputum still with loose stools, dark Hb down to 7.8 this morning, will repeat later, no abdominal pain, no vomiting appetite is still really poor, just able to get down full liquids discussed with pulmonology, unclear why she is getting worse, will increase steroids family coming in later today, will discuss with them in detail Review of Systems All systems reviewed & are unremarkable except as noted in HPI & below Constitutional: + fatigue and + weakness; no fever, no chills and no sweats Respiratory: + cough, + dyspnea and + dyspnea on exertion; no pain with cough, no snoring, no sputum production and no wheezing Cardiovascular: + edema (trace); no chest pain and no palpitations Gastrointestinal: + blood in stools; no abdominal pain, no nausea, no vomiting, no constipation and no diarrhea/loose stools Physical Exam Vital Signs (Past 24 Hours): Last Vital Signs Temp 36.4 C L 09/15/18 08:00 Pulse 97 H 09/15/18 08:00 Resp 20 09/15/18 08:00 BP 117/69 09/15/18 08:00 Pulse Ox 90 09/15/18 08:00 Constitutional: WD/WN, vitals as above + ill appearing and + frail appear ing Eyes: PERRL, conjunctivae normal, anicteric sclerae ENMT: external ear and nose normal, oropharynx normal Neck: trachea midline, no thyromegaly Respiratory: normal respiratory effort and normal percussion; no respiratory distress, no labored breathing and does not use accessory muscles Auscultation: lungs clear to auscultation bilaterally; no wheezes Cardiovascular: RRR, no murmur, no edema Gastrointestinal (Abdomen): normal bowel sounds, soft, nontender, no hepatosplenomegaly Musculoskeletal: no cyanosis or clubbing, extremities motor strength 5/5 Skin: no rashes, warm and dry Neurologic: patellar DTR's 2+ bilat, sensation intact and PERRL, EOMI, accommodation nl, no face palsy, no dysarthria Psychiatric: A+Ox3, euthymic affect Lymphatic: no cervical or axillary lymphadenopathy Results & Data Laboratory Results Laboratory Results - last 24 hr 09/14/18 09/14/18 09/14/18 07:00 11:02 11:35 WBC RBC Hgb 9.6 L Hct 28.2 L MCV MCH MCHC RDW Std Deviation RDW Coeff of Chris Plt Count MPV Immature Gran % (Auto) Neut % (Auto) Lymph % (Auto) Preston % (Auto) Eos % (Auto) Baso % (Auto) Immature Gran # (Auto) Neut # (Auto) Lymph # (Auto) Preston # (Auto) Eos # (Auto) Baso # (Auto) Hypersegmented Neuts PT INR Sodium Potassium Chloride Carbon Dioxide Anion Gap BUN Creatinine Est Cr Clr Drug Dosing Est GFR ( Amer) Est GFR (Non-Af Amer) BUN/Creatinine Ratio Glucose Calcium Procalcitonin Stool Occult Bld Scrn Positive H Blood Type Blood Type Recheck A Positive Antibody Screen Crossmatch 09/14/18 09/14/18 09/14/18 11:35 16:31 16:31 WBC RBC Hgb 9.5 L Hct 27.6 L MCV MCH MCHC RDW Std Deviation RDW Coeff of Chris Plt Count MPV Immature Gran % (Auto) Neut % (Auto) Lymph % (Auto) Preston % (Auto) Eos % (Auto) Baso % (Auto) Immature Gran # (Auto) Neut # (Auto) Lymph # (Auto) Preston # (Auto) Eos # (Auto) Baso # (Auto) Hypersegmented Neuts PT INR Sodium Potassium Chloride Carbon Dioxide Anion Gap BUN Creatinine Est Cr Clr Drug Dosing Est GFR ( Amer) Est GFR (Non-Af Amer) BUN/Creatinine Ratio Glucose Calcium Procalcitonin 0.21 Stool Occult Bld Scrn Blood Type A Positive Blood Type Recheck Antibody Screen NEGATIVE Crossmatch See Detail 09/15/18 09/15/18 09/15/18 06:20 06:20 06:20 WBC 21.77 H RBC 2.53 L Hgb 7.8 L Hct 22.5 L MCV 88.9 MCH 30.8 MCHC 34.7 RDW Std Deviation 41.7 RDW Coeff of Chris 12.9 Plt Count 332 MPV 9.2 Immature Gran % (Auto) 0.5 Neut % (Auto) 91.5 Lymph % (Auto) 4.6 Preston % (Auto) 3.1 Eos % (Auto) 0.3 Baso % (Auto) 0.0 Immature Gran # (Auto) 0.11 H Neut # (Auto) 19.89 H Lymph # (Auto) 1.01 L Preston # (Auto) 0.68 H Eos # (Auto) 0.07 Baso # (Auto) 0.01 Hypersegmented Neuts 1+ PT 11.4 INR 1.1 Sodium 131 L Potassium 3.3 L Chloride 92 L Carbon Dioxide 32 Anion Gap 7.0 BUN 33 H Creatinine 0.67 Est Cr Clr Drug Dosing 66.0 Est GFR ( Amer) 94.9 Est GFR (Non-Af Amer) 81.9 BUN/Creatinine Ratio 49.2 H Glucose 154 H Calcium 7.9 L Procalcitonin Stool Occult Bld Scrn Blood Type Blood Type Recheck Antibody Screen Crossmatch Medications Administered Current Inpatient Medications Acetaminophen (Tylenol) 650 mg PO Q4H PRN PRN Reason: Pain or Fever Stop: 10/07/18 19:28 Hydrocodone Bitart/Acetaminophen ([employer] 5/325) 1 tab PO Q4H PRN PRN Reason: Pain Stop: 09/21/18 19:38 Al Hydrox/Mg Hydrox/Simethicone (Maalox) 15 ml PO Q4H PRN PRN Reason: Dyspepsia Stop: 10/07/18 19:28 Albuterol (Ventolin 0.5% 2.5mg/0.5ml) 2.5 mg NEB Q2H PRN PRN Reason: SOB/Wheeze Stop: 10/07/18 19:28 Albuterol (Duoneb) 3 ml NEB Q4R [facility] Stop: 10/08/18 11:59 Last Admin: 09/15/18 07:17 Dose: 3 ml Documented by: Aspirin (Ecotrin Ectab) 81 mg PO DAILY [facility] Stop: 10/08/18 08:59 Last Admin: 09/14/18 07:34 Dose: 81 mg Documented by: [facility] Stop[facility] 10/08/18 08:59 Last Admin: 09/14/18 07:32 Dose: 25 mg Documented by: Docusate Sodium (Colace) 100 mg PO BID PRN PRN Reason: Constipation Stop: 10/07/18 19:38 Duloxetine HCl (Cymbalta) 30 mg PO [facility] Stop: 10/08/18 08:59 Last Admin: 09/15/18 07:46 Dose: 30 mg Documented by: Furosemide (Lasix) [facility] [place] Stop: 10/15/18 08:59 Gabapentin (Neurontin) 100 mg PO [facility] Stop: 10/08/18 08:59 Last Admin: 09/15/18 07:47 Dose: 100 mg Documented by: Piperacillin Sod/Tazobactam (Sod 3.375 gm/ Dextrose) 115 mls @ 28.75 mls/hr IV Q8H [facility]; Protocol Stop: 09/15/18 17:59 Last Admin: 09/15/18 05:40 Dose: 28.8 mls/hr Documented by: Pantoprazole Sodium 40 mg/ (Syringe) 10 mls @ 5 mls/min IV BID [facility] Stop: 10/14/18 10:59 Last Admin: 09/15/18 07:46 Dose: 5 mls/min Documented by: Sodium Chloride (Nss) 250 mls @ 15 mls/hr IV .[id number] PRN PRN Reason: For Transfusion Stop: 10/14/18 11:25 Methylprednisolone 40 mg/ (Syringe) 0.64 mls @ 1.5 mls/min IV Q12 [facility] Stop: 10/15/18 20:59 Lactobacillus Acidophilus (Floranex) 4 tab PO TIDM [facility] Stop: 10/08/18 11:59 Last Admin: 09/15/18 07:47 Dose: 4 tab Documented by: Lisinopril (Zestril) 10 mg PO QAM [facility] Stop: 10/08/18 08:59 Last Admin: 09/14/18 07:32 Dose: 10 mg Documented by: Nystatin (Mycostatin) 10 ml PO QID [facility] Stop: 09/23/18 12:59 Last Admin: 09/15/18 07:44 Dose: 10 ml Documented by: Ondansetron HCl (Zofran) 4 mg IV Q6H PRN PRN Reason: Nausea Stop: 10/07/18 19:28 Quetiapine Fumarate (Seroquel) 25 mg PO DAILY [facility] Stop: 10/08/18 08:59 Last Admin: 09/15/18 07:46 Dose: 25 mg Documented by: Zolpidem Tartrate (Ambien) 5 mg PO HS PRN PRN Reason: Sleep Stop: 10/10/18 19:42 Last Admin: 09/14/18 21:36 Dose: 5 mg Documented by:
--- NOTE | 2018-09-15 10:00 | Pulmonology Progress Note ---
Date of Service September 15, 2018 Assessment & Plan (1) Hypoxia: acute hypoxic respiratory failure bilateral infiltrates pneumonia vs pneumonitis vs aspiration vs ARDS check sputum culture on piperacillin-tazobactam. If not improving would consider restarting vancomycin and changing piperacillin-tazobactam to imipenem though may just be viral and procalcitonin is low worsened sats titrate fio2 for sat >88% possible pneumonitis on steroids. will increase steroids continue supportive care. OOB as much as possible Subjective feels "terrible" oxygenation worse requiring 95% high flow with sat 96% currently Physical Exam Vital Signs (Past 24 Hours): Last Vital Signs Temp 36.4 C L 09/15/18 08:00 Pulse 97 H 09/15/18 08:00 Resp 20 09/15/18 08:00 BP 117/69 09/15/18 08:00 Pulse Ox 90 09/15/18 08:00 Physical Exam: Constitutional: Comfortable NAD on high flow NC 95% HEENT: normocephalic atraumatic. MMM. CV: RRR nl s1,s2 no murmurs rubs or gallops Lungs: crackles bilaterally. moving air well no accessory muscle use Abd: soft nontender nondistended. Ext: no edema. no cyanosis, no edema Skin: warm dry Neuro: alert and awake. moving all extremities Psych: depressed affect
[2018-09-15] MEDS: ONDANSETRON INJ 2 MG/ML 2 ML VIAL IV PRN ×2 (10:36→14:30)
--- NOTE | 2018-09-15 10:55 | XRay Report ---
XR chest 1V portable HISTORY: 82 years-old Female worsening hypoxia acute shortness of breath COMPARISON: Chest radiograph 09/13/2018, chest CT 09/08/2018 TECHNIQUE: Portable AP view the chest FINDINGS: Cardiac silhouette is enlarged, unchanged. These multifocal mixed interstitial and alveolar opacities are redemonstrated, left greater than right with slightly improved aeration bilaterally. Small left pleural effusion redemonstrated. Large hiatal hernia. 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 IMPRESSION: 1. Diffuse multifocal bilateral mixed interstitial and alveolar opacities, left greater than right ar e redemonstrated. There is slightly improved aeration of the bilateral lungs from comparison. 2. Small left pleural effusion, unchanged. 3. Cardiomegaly. 4. Large hiatal hernia. The above report was generated using voice recognition software. It may contain grammatical, syntax o r spelling errors. Electronically signed by: Tod Giraldo M.D. 09/15/2018 10:53 AM
[2018-09-15 13:30] LABS: Influenza A virus by PCR Neg for Influ A (Neg); Influenza B virus by PCR Neg for Influ B (Neg)
[2018-09-15] MEDS ORDERED: MoRPHine SULFATE 2 MG/ML CARP IV PRN (13:38)
[2018-09-15 13:40] LABS: Hematocrit (blood only) 22.1 % (37-47); Hemoglobin 7.8 g/dL (12.0-16.0)
[2018-09-15] MEDS ORDERED: MoRPHine SULFATE 2 MG/ML CARP ONE (13:45)
[2018-09-15] MEDS ORDERED: LORazepam 0.5 MG/1 ML VIAL IV STA (14:26)
[2018-09-15] MEDS ORDERED: ONDANSETRON INJ 2 MG/ML 2 ML VIAL IV STA (14:31)
[2018-09-15] MEDS ORDERED: RAPID SEQUENCE INDUCTION BAG ONE (16:18)
[2018-09-15] MEDS ORDERED: fentaNYL citrate 100 MCG/2 ML VIAL IV PRN ×2 (16:36)
[2018-09-15] MEDS ORDERED: VANCOMYCIN CONSULT ACTIVE PRN (16:40)
[2018-09-15] MEDS: fentaNYL DRIP 1,250 MCG/250 ML BAG IV PRN (17:00)
[2018-09-15] MEDS ORDERED: VANCOMYCIN HCL 1,750 MG in SODIUM CHLORIDE 0.9% 500 ML IV SCH (17:00)
--- NOTE | 2018-09-15 17:03 | XRay Report ---
XR chest 1V portable HISTORY: 82 years-old Female intubation acute respiratory failure COMPARISON: Chest radiograph of same day at 10:37 AM TECHNIQUE: Semierect portable AP view of the chest FINDINGS: Endotracheal tube overlies the midline, 2.7 cm superior to the gaby. Enteric tube is noted coursing below the diaphragm, distal tip not definitively seen. Hiatal hernia. Cardiomediastinal and hilar si lhouettes are unchanged. Cystic bilateral mixed interstitial and alveolar opacities. No pneumothorax. Small left pleural effusion is stable. Hiatal hernia. Degenerative changes of the shoulders and spin e. IMPRESSION: 1. Endotracheal tube terminates 2.7 cm superior to the gaby. 2. Unchanged small left pleural effusion. 3. Persistent mixed bilateral interstitial and alveolar opacities. 4. Cardiomegaly. The above report was generated using voice recognition software. It may contain grammatical, syntax o r spelling errors. Electronically signed by: Tod Giraldo M.D. 09/15/2018 5:02 PM
--- NOTE | 2018-09-15 17:16 | Procedure Note ---
Procedure Note Date of Service September 15, 2018 pt with worsening sat <90% on high flow nasal cannula at 60 liters and 96%. decision to intubate family agreeable to intubation etomidate 20 mg given usign glidescope 3 grade 1 view 7.5 tube placed 22 at lips pt vomiting just after tube was placed and cuff inflated. I did not see any penetration through cords placement confirmed with color change, lung sounds CXR confirms placement
[2018-09-15 17:51] LABS: iSTAT Allen Test Pass; iSTAT Arterial Blood Gas HCO3 34 meg/L (19-24); iSTAT Arterial Blood Gas pCO2 62 mmHg (35-46); iSTAT Arterial Blood Gas pH 7.34 (7.35-7.45); iSTAT Carbon Dioxide 36 mEq/l (24-31); iSTAT FiO2 100 %; iSTAT Site R Radial
--- NOTE | 2018-09-15 19:04 | Pharmacy Report ---
Pharmacy Abx Initial Consult - Date of Service September 15, 2018 - Pharmacy Dosing Scope Date of Consult: 09/15/18 Consultation requested by: Dr. Atif Dubose Pharmacy is consulted to initiate Vancomycin IV dosing therapy, order appropriate labs and adjust drug dose/frequency. - Subjective The patient is a 82 year old F admitted on 09/07/18 18:13 with aspiration pneumonia. Patient has failed empiric treatment with IV Zosyn/Azithromycin/Levofloxacin - Objective Height: 5 ft 5 in Weight: 75.9 kg Vital Signs (Past 12hrs): Vital Signs Temp Pulse Pulse Pulse Resp BP BP 09/15/18 18:00 74 18 118/55 L 09/15/18 17:15 77 20 09/15/18 17:01 94 H 18 137/61 09/15/18 16:30 36.4 C L 96 H 24 125/58 L 09/15/18 15:54 87 20 93/58 L 09/15/18 15:50 100 H 22 09/15/18 15:30 87 20 93/58 L 09/15/18 11:42 83 09/15/18 11:41 89 18 09/15/18 10:47 36.5 C 97 H 20 115/69 09/15/18 08:00 36.4 C L 97 H 20 117/69 09/15/18 07:18 78 18 Pulse Ox Pulse Ox 09/15/18 18:00 90 09/15/18 17:15 97 09/15/18 17:01 91 09/15/18 16:30 84 L 09/15/18 15:54 09/15/18 15:50 88 L 09/15/18 15:30 82 L 09/15/18 11:42 09/15/18 11:41 95 09/15/18 10:47 93 09/15/18 08:00 90 09/15/18 07:18 93 93 Lab Results (24hrs): Laboratory Tests (24 Hours) 09/15/18 09/15/18 06:20 06:20 WBC 21.77 H Neut # (Auto) 19.89 H Creatinine 0.67 Est Cr Clr Drug Dosing 66.0 Micro Results: 09/07/18 20:01 Blood Culture - Final Blood No growth 09/07/18 19:59 Blood Culture - Final Blood No growth - Risk Factors for Resistance * Hospitalization for 48 hours or more within the past 90 days * Current hospitalization > 5 days * Antimicrobial use within the last 90 days, started empiric Zosyn, Levofloxacin and Azithromycin - Assessment & Plan Assessment 82 year old F empirically treated with Zosyn, Levofloxacin and Azithromycin for possible aspiration pneumonia Patient now with worsening respiratory function changing IV antibiotics to IV Primaxin and IV Vancomycin Renal function appears stable throughout this admission thus far. Plan IV Vancomycin/Primaxin for treatment of pneumonia/respiratory failure Vancomycin IV * Estimated PK Parameters: Vd 0.7 L/kg, Bipin .059 hr-1, t1/2 11.75 hr * Loading dose: Vancomycin 1750 mg (23 mg/kg) * Maintenance dose: Vancomycin 1250 mg IV (16.5 mg/kg) every 16 hours * Goal trough level for pneumonia : 15 to 20 mcg/mL * Trough level ordered for 09/17/18 prior to the 1600 hours dose This patient is also receiving Primaxin 500mg IV every 6 hours. Pharmacy will continue to follow and will adjust dose/frequency as necessary. Thank you.
[2018-09-15] MEDS ORDERED: MIDAZOLAM HCL 125 MG/250 ML BAG IV PRN (19:51)
[2018-09-15] MEDS ORDERED: methylPREDNISolone 40 MG in SYRINGE 0 ML IV SCH (21:00)
[2018-09-15] MEDS ORDERED: POTASSIUM CHLORIDE 10 MEQ TABCR PO SCH (21:00)
[2018-09-15] MEDS: NOREPINEPHRINE BIT INJ 8 MG in DEXTROSE 5% 500 ML IV SCH (21:15)
[2018-09-15 21:21] LABS: Hematocrit (blood only) 22.3 % (37-47); Hemoglobin 7.7 g/dL (12.0-16.0)
--- NOTE | 2018-09-15 21:28 | Critical Care Progress Note ---
Date of Service September 15, 2018 Subjective Patient was transferred to the unit for worsening respiratory distress in the setting of ARDS with decreasing his ability to oxygenate. She had been intubated and sedated. At change of shift, ventilator settings were addressed per attending. Patient continued to decline from an oxygenation standpoint. She had consistently low oxygenation in the low 80s. She did appear to be air stacking and noncompliant with the vent. Her blood pressure continued to decline as well. In an effort to gain access, attempts were made for peripheral sites. The patient has poor peripheral access. I did attempt to place access under ultrasound guidance peripherally, however the patient has little to no peripheral access. With patient's declining respiratory status and associated hypotension, this did necessitate the need for vasoactive support. I did speak with the patient's daughter Ruth via phone. I explained the situation and worsening decline. I did suggest the need for central venous access as well as arterial line placement. Initially, she was hesitant, particularly with description of the patient's tenuous status and stated she would rather we refrain from further intervention at this point and continue with current course until they were able to arrive within the hour. I received an additional phone call several minutes later stating that the family did discuss patient status and were comfortable with proceeding with central line placement as well as arterial line insertion. I explained risks versus benefits and they did wish to proceed regardless. Please see separate note for CVL and A-line placement. Patient's family did arrive and I had an extensive discussion with the patient's as well as daughter and granddaughter. At this point, they are agreeable with proceeding with current measures including need for vasopressors, aggressive ventilatory techniques, and neuromuscular blockade. We did discuss further CODE STATUS and at this point, they would agree that the patient will transition to a DO NOT RESUSCITATE status in the event of any cardiovascular collapse. Otherwise, we will continue with care with goal directed towards improvement from pulmonary status. After access was obtained, the patient was immediately started on levo fed drip with aggressive titrations. Despite this, and with capability to monitor closely via arterial line, the patient did require addition of vasopressin to help augment effects of levo fed. In the interim, I did repeat labs which demonstrated a persistent anemia. There had been concern for GI loss. Patient had consistently low saturations in the low 80s. With poor ability to oxygenate as well as likely declining oxygen carrying capacity from anemic state, I did elect to proceed with blood transfusion at family's consent. 2 units of blood had previously been ordered and were on hold for the patient. I did place order to give both units to help support volume as well as hopefully improve oxygenation. I did wish to avoid further IV fluid resuscitation as the patient is in fulminant ARDS from questionable source at this time. With inability to rule out cardiogenic source, I did feel this was most appropriate at this juncture. In addition, order was placed for Nimbex drip to facilitate neuromuscular blockade for hopes at better control patient's breathing for improvement in oxygenation. [id number] monitor was ordered as well. I did review patient's current labs and orders. I did increase the patient's current steroid regime. In addition, repeat blood cultures and fungal cultures were ordered as well. On review of her chart, she had previously been on nystatin for oral thrush. With concerns for possible aspiration event, certainly cannot exclude pulmonary contamination as well. Because of this, the patient was placed on caspofungin for both Aspergillus and candidal infection. Patient did show improvement from both the blood pressure standpoint as well as oxygenation throughout the night. We did transition to an ARDSNET protocol for higher PEEP with intent to titrate down FiO2 when capable. This did show improvement in the patient's oxygenation. Serial ABGs will continue to be drawn with adjustments to be made as needed. I have personally spent 90 minutes of critical care time in the direct management of this patient. This is a life/limb threatening event. This includes time spent evaluating patient, direct bedside care, chart review, placing orders, interpretation of diagnostic studies, discussion with consultants, patient, and family members, as well as other required patient management activities. This time is exclusive of all separately billable procedures, and teaching time and separate from and in addition to any other critical care service time. Physical Exam Vital Signs (Past 24 Hours): Last Vital Signs Temp 36.4 C L 09/15/18 16:30 Pulse 74 09/15/18 18:00 Resp 18 09/15/18 18:00 BP 118/55 L 09/15/18 18:00 Pulse Ox 90 09/15/18 18:00
[2018-09-15 21:34] LABS: iSTAT Allen Test Pass; iSTAT Arterial Blood Gas HCO3 30 meg/L (19-24); iSTAT Arterial Blood Gas pCO2 55 mmHg (35-46); iSTAT Arterial Blood Gas pH 7.34 (7.35-7.45); iSTAT Carbon Dioxide 32 mEq/l (24-31); iSTAT FiO2 100 %; iSTAT Site R Radial
[2018-09-15 21:38] LABS: BUN Creatinine Ratio 38.9 (10-20); Calcium 7.8 mg/dl (8.5-10.1); Creatinine Clr Calc Pharmacy 49.7 ml/min; Est GFR (Non-African American) 60.4; Potassium 3.5 mmol/L (3.5-5.1)
[2018-09-15 21:46] LABS: Troponin I 0.033 ng/ml (0-0.045)
--- NOTE | 2018-09-15 22:17 | Procedure Note ---
Procedure Note Date of Service September 15, 2018 Procedure: Arterial Line Placement Attending: Dr. Lucia APC: Matti Oconnor PA-C Indication: Monitoring on Pressors Anesthesia: Lidocaine 1% Emergent consent was implied secondary to patient's declining status and need for close pressure monitoring and frequent ABGs. Family's verbal consent was obtained prior to performing the procedure. A time-out was completed verifying correct patient, procedure, site, positioning, and implant(s) or special equipment if applicable. Patients RIGHT Groin was prepped and draped in the usual sterile fashion. Ultrasound guidance was used to aid needle placement. Arterial blood return was noted and the introducer needle. Pulsatile blood flow was noted after syringe was removed with needle maintained in the vessel. Utilizing Seldinger technique, a guidewire was threaded without resistance into the femoral vein. The needle was removed. A 20g Arrow arterial line was placed over guidewire into femoral artery without resistance. Catheter easily threaded. Good waveform was observed. The patient tolerated the procedure well. Confirmation of placement with ultrasound. Blood Loss: Minimal Complications: None Procedural Ultrasound Guidance: Procedure Date: 09/15/2018 Indication: Pressors, ABGs, Frequent Lab Draws Attending: Dr. Lucia APC: Matti Oconnor PA-C Artery AND Vein visualized: YES Line confirmed in Artery with Ultrasound: YES Complications: NONE Patient tolerate procedure: WELL Images obtained are saved for permanent record.
--- NOTE | 2018-09-15 22:17 | Procedure Note ---
Procedure Note Date of Service September 15, 2018 Procedure: Femoral Central Line Placement Attending: Dr. Lucia APC: Matti Oconnor PA-C Indication: Central Drug Administration, Poor Venous Access, Multiple Lab Draws Necessary, etc. Anesthesia: Lidocaine 1% Emergent consent was implied secondary to patient's rapidly declining status and need for central venous access. Verbal consent was obtained from family to proceed as needed. A time-out was completed verifying correct patient, procedure, site, positioning, and implants(s) or special equipment if applicable. Patients RIGHT Groin was cleansed and draped in the typical sterile fashion using Chloraprep. The Femoral Vein and Femoral Artery were identified using ultrasound. The superficial tissue was anesthetized using 4.0 mL of 1% lidocaine without epinephrine under direct visualization with the ultrasound. After adequate anesthetization was achieved, the Femoral Vein was cannulated under direct ultrasound guidance using an introducer needle on a syringe. Good venous blood return was maintained prior to removal of syringe from introducer needle. Using Seldinger Technique, a guide wire was advanced through the introducer needle without resistance. The introducer needle was removed and ultrasound images were obtained of the guide wire within the Femoral Vein and saved to the patients medical record. A small incision was made in penetrating fashion at the guide wire insertion site utilizing an 11 blade scalpel. The dilator was advanced to the vessel without resistance. The dilator was exchanged for the triple lumen catheter which was advanced into the vessel without resistance. The guide wire was removed intact from the catheter without issue. Claves were placed on each catheter tip with confirmation of good blood flow from each lumen. Each port was easily flushed with sterile saline. The catheter was placed at the hub and sutured in place. BioPatch was applied to the catheter and a sterile Tegaderm dressing was applied over the catheter with careful attention to sterility. Patient tolerated procedure well. No immediate complications were met. Images obtained are saved for permanent record Procedural Ultrasound Guidance: Procedure Date: 09/15/2018 Indication: Pressors, Poor Venous Access Attending: Dr. Lucia APC: Matti Oconnor PA-C Artery AND Vein visualized: YES Compressible Vein: YES Guidewire or Short Catheter seen in vein prior to dilation: YES Line confirmed in Vein with ultrasound: YES Images obtained are saved for permanent record.
[2018-09-15] MEDS ORDERED: MIDAZOLAM HCL 1 MG/ML 2ML VIAL IV PRN (22:19)
--- NOTE | 2018-09-15 22:34 | XRay Report ---
XR chest 1V portable HISTORY: 82 years-old Female worsening hypoxia acute hypoxia COMPARISON: Chest radiograph of same day at 4:43 PM TECHNIQUE: Portable AP view of the chest FINDINGS: Low-lying endotracheal tube terminates 10 mm superior to the gaby coursing towards the right mainst em bronchus. Calcification of the thoracic aortic arch. Cardiomediastinal and hilar silhouettes are u nchanged. Persistent extensive mixed interstitial and alveolar opacities of the bilateral lungs which have not significantly changed. Small left pleural effusion. No pneumothorax. Suggested enteric tube coils about the abdominal left upper quadrant within the region of the gastric fundus Advanced degen erative changes of the shoulders and spine. IMPRESSION: 1. Low-lying endotracheal tube terminates 10 mm superior to the gaby. 2. Persistent extensive bilateral pulmonary opacities. 3. Small left pleural effusion. The above report was generated using voice recognition software. It may contain grammatical, syntax o r spelling errors. Electronically signed by: Tod Giraldo M.D. 09/15/2018 10:32 PM
[2018-09-15] MEDS: IMIPENEM/CILASTATIN SODIUM 500 MG in DEXTROSE 5% 100 ML IV SCH (22:54)
[2018-09-15] MEDS: CISATRACURIUM BESYLATE 40 MG in 0.9 % SODIUM CHLORIDE 80 ML IV PRN (22:55)
[2018-09-15] MEDS ORDERED: SODIUM CHLORIDE 0.9% 250 ML IV PRN (23:12)
[2018-09-15] MEDS ORDERED: CASPOFUNGIN 70 MG in SODIUM CHLORIDE 0.9% 250 ML IV STA (23:29)
[2018-09-15 23:32] LABS: iSTAT Arterial Blood Gas HCO3 30 meg/L (19-24); iSTAT Arterial Blood Gas pCO2 50 mmHg (35-46); iSTAT Arterial Blood Gas pH 7.38 (7.35-7.45); iSTAT Carbon Dioxide 31 mEq/l (24-31); iSTAT FiO2 100 %; iSTAT Site Art Line
[2018-09-16] MEDS: methylPREDNISolone 60 MG in SYRINGE 0 ML IV SCH ×3 (00:13→11:30)
[2018-09-16] MEDS: VASOPRESSIN 20 UNITS in 0.9 % SODIUM CHLORIDE 100 ML IV SCH ×3 (00:39→15:01)
[2018-09-16] MEDS ORDERED: CALCIUM GLUCONATE 10% 1,000 MG in SODIUM CHLORIDE 0.9% 50 ML IV STA (00:53)
[2018-09-16 01:19] LABS: iSTAT Arterial Blood Gas HCO3 30 meg/L (19-24); iSTAT Arterial Blood Gas pCO2 63 mmHg (35-46); iSTAT Arterial Blood Gas pH 7.29 (7.35-7.45); iSTAT Carbon Dioxide 32 mEq/l (24-31); iSTAT FiO2 100 %; iSTAT Site Art Line
[2018-09-16] MEDS ORDERED: FUROSEMIDE 40 MG/4 ML VIAL IV STA (01:20)
[2018-09-16] MEDS: CISATRACURIUM BESYLATE 40 MG in 0.9 % SODIUM CHLORIDE 80 ML IV PRN ×2 (01:34→07:20)
[2018-09-16] MEDS: IMIPENEM/CILASTATIN SODIUM 500 MG in DEXTROSE 5% 100 ML IV SCH (02:49)
[2018-09-16] MEDS: ALBUT/IPRATROP 3MG/0.5MG NEB 3 ML VIAL NEB SCH ×4 (03:03→15:27)
[2018-09-16 04:56] LABS: INR 1.6 (0.9-1.1); Partial Thromboplastin Ratio 1.1; Partial Thromboplastin Time 28.7 Seconds (21.0-31.0); Prothrombin Time 15.8 Seconds (9.0-12.0)
[2018-09-16 05:02] LABS: Albumin Level 1.7 gm/dl (3.4-5.0); BUN Creatinine Ratio 27.4 (10-20); Bilirubin Direct 0.5 mg/dl (0-0.2); Calcium 7.6 mg/dl (8.5-10.1); Creatinine Clr Calc Pharmacy 35.1 ml/min; Est GFR (African American) 45.9; Est GFR (Non-African American) 39.6; Magnesium 1.8 mg/dl (1.8-2.4); Potassium 3.5 mmol/L (3.5-5.1)
[2018-09-16 05:09] LABS: Phosphorus 3.8 mg/dl (2.5-4.9); Total Protein 5.1 gm/dl (6.4-8.2); Troponin I 0.08 ng/ml (0-0.045)
[2018-09-16 05:30] LABS: iSTAT Arterial Bld Gas O2 Sat 94; iSTAT FiO2 100 %; iSTAT Hematocrit 29 % (37-47); iSTAT Hemoglobin 9.9 g/dl (12.0-16.0); iSTAT Potassium 3.5 mEq/L (3.3-5.0); iSTAT Site Art Line; iSTAT Sodium 127 mEq/L (135-144)
[2018-09-16 05:57] LABS: Hematocrit (blood only) 24.6 % (37-47); Hemoglobin 8.5 g/dL (12.0-16.0); Mean Corpuscular Hgb Conc 34.6 g/dL (32-36); Mean Corpuscular Volume 88.5 fL (80-100); Mean Platelet Volume 8.9 fL (7.4-10.4); Platelet Count 252 K/uL (130-400); RDW Coefficient of Variation 13.5 % (11.5-14.5); Red Blood Count 2.78 M/uL (4.2-5.4); White Blood Count 35.73 K/uL (4.8-10.8)
[2018-09-16 05:59] LABS: Basophils # (auto) 0.01 K/uL (0-0.2); Eosinophils # (auto) 0.01 K/uL (0-0.5); Immature Granulocytes # (auto) 0.18 K/uL (0.00-0.02); Immature Granulocytes % (auto) 0.5 %; Lymphocytes # (auto) 0.23 K/uL (1.2-3.4); Lymphocytes % (auto) 0.6 %; Monocytes # (auto) 0.35 K/uL (0.11-0.59); Neutrophils # (auto) 34.95 K/uL (1.4-6.5); Neutrophils % (auto) 97.9 %; RBC Morphology Unremarkable
[2018-09-16] MEDS ORDERED: IMIPENEM/CILASTATIN CONSULT ACTIVE PRN (07:39)
[2018-09-16] MEDS: PANTOprazole 40 MG in SYRINGE 0 ML IV SCH (07:49)
[2018-09-16] MEDS ORDERED: VANCOMYCIN HCL 1,250 MG in SODIUM CHLORIDE 0.9% 250 ML IV SCH (08:00)
--- NOTE | 2018-09-16 08:12 | XRay Report ---
XR chest 1V portable CLINICAL HISTORY: 82 years-old Female presenting with f/u. TECHNIQUE: Portable upright AP view of the chest was obtained. COMPARISON: 09/15/2018. FINDINGS: Endotracheal tube terminates almost 4 cm from the gaby. Nasogastric tube emanates in the gastric fu ndus. The nasogastric tube appears kinked and irregular. Atherosclerosis of aortic arch. Cardiac silh ouette normal in size. Extensive severe diffuse reticular opacities similar to prior. Patchy superimp osed opacities similar to prior. No large effusion or pneumothorax. Degenerative changes of the thor acic spine. Numerous external leads overlie the images degrading evaluation. Large hiatal hernia may be present. IMPRESSION: 1. Nasogastric tube may be kinked and/or the imaged in the intragastric portion. 2. Severe chronic lung disease with stable superimposed patchy infiltrates. 3. Appropriately positioned endotracheal tube. Electronically signed by: Pastor Boggs M.D. 09/16/2018 8:10 AM
--- NOTE | 2018-09-16 09:09 | Pharmacy Report ---
Pharmacy Abx Dose Short Note - Date of Service September 16, 2018 - Assessment & Plan Assessment * 82 year old F admit 09/07 for hypoxic resp failure thought to be secondary to multifocal pna, possible aspiration * She had been on Levofloxacin prior to admission (since 09/03). Her initial abx regimen here included Zosyn + Zithromax. * Patient developed worsening hypoxemic resp failure yesterday and was transferred to ICU, intubated, placed on pressors for BP support and abx regimen broadened. There is concern for ARDS. FiO2 requirement has been quite high but PaO2 > 60 on last ABC, SpO2 > 90 currently * Zosyn was d/c'd and patient placed on Vanco + Primaxin + Caspofungin. Pharmacy to dose vanco + Primaxin * BLCX's ordered, fungal smear (blood) also ordered, repeat MRSA nasal swab ordered * Procal elevated 7.89 * Renal fxn has worsened greatly over last 24 hrs, SCr has doubled (0.67 --> 1.2 6), U.O. 0mL x2 hrs when last documented * MAP 62 this AM from art line Plan Vancomycin * 1750mg (~23mg/kg) loading dose x 1 given last evening * Renal fxn difficult to estimate accurately in the setting of YANIQUE, however I suspect eCrCl < 15cc/min at the moment given UOP and quick rise in SCr * Estimated half-life 24+ hrs. Therefore will not prescribe maintenance dose at this time. * Rather will check a random level ~ 24 hrs after loading dose and use this to guide future doses * Goal trough level for sepsis possible pulm infxn : 15 to 20 mcg/mL Primaxin * Initially started on 500mg IV Q 6 hrs, however given acute change in renal fxn will reduce dose to that recommended for eCrCl 30-59cc/min at the moment given possible increase volume of distribution in acute setting, i.e. 500mg IV Q 8 hrs. balancing severe infxn with risks of excess Primaxin in short-term * Will repeat SCr this evening with the random vanco level. If SCr continuing to climb this dose may need reduced to 500mg IV Q 12 hrs for eCrCl 15- 29cc/min. * NOTE: IF eCrCl < 15cc/min, Primaxin therapy only recommended for up to 48 hrs unless hemodialysis initiated due to risks of seizure Pharmacy will continue to follow and will adjust dose/frequency as necessary. Thank you.
[2018-09-16] MEDS ORDERED: IMIPENEM/CILASTATIN SODIUM 500 MG in DEXTROSE 5% 100 ML IV SCH (10:00)
--- NOTE | 2018-09-16 10:31 | Critical Care Progress Note ---
Date of Service September 16, 2018 Assessment & Plan (1) Pneumonia: Neuro- sedation with fentanyl, midazolam and paralyzed with cisatracurium CV- shock likely combination septic and medications and RV dysfunction. RV failure with due to ARDS and hypoxia vs possible PE. mobile echodensity at base of R atrium unable to send for CT chest due to instability. will start empiric heparin without bolus but will need to be careful with recent bleeding Pulmonary- acute hypoxic respiratory failure with bilateral infiltrates pneumonia vs pneumonitis vs aspiration vs ARDS. PE is possible titrate fio2 for sat >88%. low tidal volume ventilation. possible pneumonitis on steroids q12. too unstable for bronchoscopy today. continue paralytics. t/c prone positioning ID- likely pneumonia continue vancomycin and imipenem. less likely fungal Renal-cr worse. watch UOP GI- possible GI bleed when INR was elevated. continue pantoprazole. Heme- leukocytosis. anemia due to blood loss and chronic disease. anticoagulation for lesion possible thrombus seen on echo Endocrine- blood sugars high insulin drip Dispo- continue ICU care for hemodynamic and ventilatory support DNR family discussions I have personally spent 100 minutes of critical care time in the direct management of this patient. This is a life/limb threatening event. This includes time spent evaluating patient, direct bedside care, chart review, placing orders, interpretation of diagnostic studies, discussion with consul tants, patient, and/or family members regarding treatment decisions, as well as other required patient management activities. This time is exclusive of all separately billable procedures, and teaching time and separate from and in addition to any other critical care service time. Subjective worsening oxygenation yesterday transferred to ICU and intubated. large amount of boost appearing liquid suctioned out of stomach post intubation. she required paralytics and high vent settings to maintain sat. BP decreased with sedation and paralytics and required central line and norepinephrine and vasopressin Physical Exam Vital Signs (Past 24 Hours): Last Vital Signs Temp 36.9 C 09/16/18 06:00 Pulse 125 H 09/16/18 07:10 Resp 28 H 09/16/18 07:10 BP 106/63 09/16/18 06:00 Pulse Ox 91 09/16/18 07:10 Physical Exam: Constitutional: Comfortable NAD sedated on vent HEENT: normocephalic atraumatic. MMM. no cervical lymphadenopathy CV: tachycardic nl s1,s2 no murmurs rubs or gallops Lungs: crackles bilaterally. no accessory muscle use Abd: soft nontender nondistended. normal bowel sounds Ext: + edema. no cyanosis, no clubbing Skin: warm dry Neuro: sedated and paralyzed Psych: sedated Results & Data Laboratory Results Laboratory Results - last 24 hr 09/14/18 09/15/18 09/15/18 11:35 12:00 13:27 WBC RBC Hgb 7.8 L POC Hgb Hct 22.1 L POC Hct MCV MCH MCHC RDW Std Deviation RDW Coeff of Chris Plt Count MPV Immature Gran % (Auto) Neut % (Auto) Lymph % (Auto) [place] % (Auto) Eos % (Auto) Baso % (Auto) Immature Gran # (Auto) Neut # (Auto) Lymph # (Auto) [place] # (Auto) Eos # (Auto) Baso # (Auto) RBC Morphology PT INR APTT PTT Ratio Sample Site POC pH POC pCO2 POC pO2 POC HCO3 POC Total CO2 POC Base Excess POC O2 Saturation POC ABG O2 Sat Yusef Test O2 Delivery Device POC O2 Rate Minute Ventilation POC FiO2 Tidal Volume PEEP POC Sodium Sodium POC Potassium Potassium Chloride Carbon Dioxide Anion Gap BUN Creatinine Est Cr Clr Drug Dosing Est GFR ( Amer) Est GFR (Non-Af Amer) BUN/Creatinine Ratio Glucose POC Glucose Lactate Calcium Ionized Calcium Phosphorus Magnesium Total Bilirubin Direct Bilirubin AST ALT Alkaline Phosphatase Troponin I NT-Pro-B Natriuret Pep Total Protein Albumin Procalcitonin Nasal Screen MRSA (PCR) Influenza Type A (PCR) Neg for Influ A Influenza Type B (PCR) Neg for Influ B Blood Type A Positive Antibody Screen NEGATIVE Crossmatch See Detail 09/15/18 09/15/18 09/15/18 17:38 18:11 21:11 WBC RBC Hgb 7.7 L POC Hgb Hct 22.3 L POC Hct MCV MCH MCHC RDW Std Deviation RDW Coeff of Chris Plt Count MPV Immature Gran % (Auto) Neut % (Auto) Lymph % (Auto) [place] % (Auto) Eos % (Auto) Baso % (Auto) Immature Gran # (Auto) Neut # (Auto) Lymph # (Auto) [place] # (Auto) Eos # (Auto) Baso # (Auto) RBC Morphology PT INR APTT PTT Ratio Sample Site R Radial POC pH 7.34 L POC pCO2 62 H POC pO2 117 H POC HCO3 34 H POC Total CO2 36 H POC Base Excess 8.0 H POC O2 Saturation POC ABG O2 Sat 98.0 H Yusef Test Pass O2 Delivery Device Ventilator POC O2 Rate 18 Minute Ventilation 7.2 POC FiO2 100 Tidal Volume 400 PEEP 10 POC Sodium Sodium POC Potassium Potassium Chloride Carbon Dioxide Anion Gap BUN Creatinine Est Cr Clr Drug Dosing Est GFR ( Amer) Est GFR (Non-Af Amer) BUN/Creatinine Ratio Glucose POC Glucose 201 H Lactate Calcium Ionized Calcium Phosphorus Magnesium Total Bilirubin Direct Bilirubin AST ALT Alkaline Phosphatase Troponin I NT-Pro-B Natriuret Pep Total Protein Albumin Procalcitonin Nasal Screen MRSA (PCR) Influenza Type A (PCR) Influenza Type B (PCR) Blood Type Antibody Screen Crossmatch 09/15/18 09/15/18 09/15/18 21:11 21:11 21:17 WBC RBC Hgb POC Hgb Hct POC Hct MCV MCH MCHC RDW Std Deviation RDW Coeff of Chris Plt Count MPV Immature Gran % (Auto) Neut % (Auto) Lymph % (Auto) [place] % (Auto) Eos % (Auto) Baso % (Auto) Immature Gran # (Auto) Neut # (Auto) Lymph # (Auto) [place] # (Auto) Eos # (Auto) Baso # (Auto) RBC Morphology PT INR APTT PTT Ratio Sample Site R Radial POC pH 7.34 L POC pCO2 55 H POC pO2 59 L POC HCO3 30 H POC Total CO2 32 H POC Base Excess 4.0 H POC O2 Saturation POC ABG O2 Sat 88.0 L Yusef Test Pass O2 Delivery Device Ventilator POC O2 Rate 20 Minute Ventilation 9.3 POC FiO2 100 Tidal Volume 450 PEEP 10 POC Sodium Sodium 132 L POC Potassium Potassium 3.5 Chloride 95 L Carbon Dioxide 31 Anion Gap 6.0 BUN 35 H Creatinine 0.89 Est Cr Clr Drug Dosing 49.7 Est GFR ( Amer) 70.0 Est GFR (Non-Af Amer) 60.4 BUN/Creatinine Ratio 38.9 H Glucose 147 H POC Glucose Lactate 2.7 H* Calcium 7.8 L Ionized Calcium Phosphorus Magnesium Total Bilirubin Direct Bilirubin AST ALT Alkaline Phosphatase Troponin I 0.033 NT-Pro-B Natriuret Pep Total Protein Albumin Procalcitonin Nasal Screen MRSA (PCR) Influenza Type A (PCR) Influenza Type B (PCR) Blood Type Antibody Screen Crossmatch 09/15/18 09/16/18 09/16/18 23:17 01:00 04:35 WBC 35.73 H* D RBC 2.78 L Hgb 8.5 L POC Hgb Hct 24.6 L POC Hct MCV 88.5 MCH 30.6 MCHC 34.6 RDW Std Deviation 44.0 RDW Coeff of Chris 13.5 Plt Count 252 MPV 8.9 Immature Gran % (Auto) 0.5 Neut % (Auto) 97.9 Lymph % (Auto) 0.6 [place] % (Auto) 1.0 Eos % (Auto) 0.0 Baso % (Auto) 0.0 Immature Gran # (Auto) 0.18 H Neut # (Auto) 34.95 H Lymph # (Auto) 0.23 L [place] # (Auto) 0.35 Eos # (Auto) 0.01 Baso # (Auto) 0.01 RBC Morphology Unremarkable PT INR APTT PTT Ratio Sample Site Art Line Art Line POC pH 7.38 7.29 L POC pCO2 50 H 63 H POC pO2 50 L 69 L POC HCO3 30 H 30 H POC Total CO2 31 32 H POC Base Excess 4.0 H 3.0 H POC O2 Saturation POC ABG O2 Sat 85.0 L 91.0 Yusef Test NA NA O2 Delivery Device Ventilator Ventilator POC O2 Rate 20 20 Minute Ventilation 9.0 8 POC FiO2 100 100 Tidal Volume 450 400 PEEP 10 14 POC Sodium Sodium POC Potassium Potassium Chloride Carbon Dioxide Anion Gap BUN Creatinine Est Cr Clr Drug Dosing Est GFR ( Amer) Est GFR (Non-Af Amer) BUN/Creatinine Ratio Glucose POC Glucose Lactate Calcium Ionized Calcium Phosphorus Magnesium Total Bilirubin Direct Bilirubin AST ALT Alkaline Phosphatase Troponin I NT-Pro-B Natriuret Pep Total Protein Albumin Procalcitonin Nasal Screen MRSA (PCR) Influenza Type A (PCR) Influenza Type B (PCR) Blood Type Antibody Screen Crossmatch 09/16/18 09/16/18 09/16/18 04:35 04:35 04:35 WBC RBC Hgb POC Hgb Hct POC Hct MCV MCH MCHC RDW Std Deviation RDW Coeff of Chris Plt Count MPV Immature Gran % (Auto) Neut % (Auto) Lymph % (Auto) [place] % (Auto) Eos % (Auto) Baso % (Auto) Immature Gran # (Auto) Neut # (Auto) Lymph # (Auto) [place] # (Auto) Eos # (Auto) Baso # (Auto) RBC Morphology PT 15.8 H INR 1.6 H APTT 28.7 PTT Ratio 1.1 Sample Site POC pH POC pCO2 POC pO2 POC HCO3 POC Total CO2 POC Base Excess POC O2 Saturation POC ABG O2 Sat Yusef Test O2 Delivery Device POC O2 Rate Minute Ventilation POC FiO2 Tidal Volume PEEP POC Sodium Sodium 130 L POC Potassium Potassium 3.5 Chloride 94 L Carbon Dioxide 27 Anion Gap 9.0 BUN 35 H Creatinine 1.26 H D Est Cr Clr Drug Dosing 35.1 Est GFR ( Amer) 45.9 Est GFR (Non-Af Amer) 39.6 BUN/Creatinine Ratio 27.4 H Glucose 241 H POC Glucose Lactate 1.3 Calcium 7.6 L Ionized Calcium Phosphorus 3.8 Magnesium 1.8 Total Bilirubin 1.0 Direct Bilirubin 0.5 H AST 25 ALT 18 Alkaline Phosphatase 79 Troponin I 0.080 H* NT-Pro-B Natriuret Pep 3598 H Total Protein 5.1 L Albumin 1.7 L Procalcitonin Nasal Screen MRSA (PCR) Influenza Type A (PCR) Influenza Type B (PCR) Blood Type Antibody Screen Crossmatch 09/16/18 09/16/18 09/16/18 04:35 04:35 05:14 WBC RBC Hgb POC Hgb 9.9 L Hct POC Hct 29 L MCV MCH MCHC RDW Std Deviation RDW Coeff of Chris Plt Count MPV Immature Gran % (Auto) Neut % (Auto) Lymph % (Auto) [place] % (Auto) Eos % (Auto) Baso % (Auto) Immature Gran # (Auto) Neut # (Auto) Lymph # (Auto) [place] # (Auto) Eos # (Auto) Baso # (Auto) RBC Morphology PT INR APTT PTT Ratio Sample Site Art Line POC pH POC pCO2 POC pO2 POC HCO3 POC Total CO2 POC Base Excess POC O2 Saturation 94 POC ABG O2 Sat Yusef Test NA O2 Delivery Device Ventilator POC O2 Rate 24 Minute Ventilation 9.2 POC FiO2 100 Tidal Volume 400 PEEP 14 POC Sodium 127 L Sodium POC Potassium 3.5 Potassium Chloride Carbon Dioxide Anion Gap BUN Creatinine Est Cr Clr Drug Dosing Est GFR ( Amer) Est GFR (Non-Af Amer) BUN/Creatinine Ratio Glucose POC Glucose Lactate Calcium Ionized Calcium 1.05 L Phosphorus Magnesium Total Bilirubin Direct Bilirubin AST ALT Alkaline Phosphatase Troponin I NT-Pro-B Natriuret Pep Total Protein Albumin Procalcitonin 7.89 H Nasal Screen MRSA (PCR) Influenza Type A (PCR) Influenza Type B (PCR) Blood Type Antibody Screen Crossmatch 09/16/18 08:35 WBC RBC Hgb POC Hgb Hct POC Hct MCV MCH MCHC RDW Std Deviation RDW Coeff of Chris Plt Count MPV Immature Gran % (Auto) Neut % (Auto) Lymph % (Auto) [place] % (Auto) Eos % (Auto) Baso % (Auto) Immature Gran # (Auto) Neut # (Auto) Lymph # (Auto) [place] # (Auto) Eos # (Auto) Baso # (Auto) RBC Morphology PT INR APTT PTT Ratio Sample Site POC pH POC pCO2 POC pO2 POC HCO3 POC Total CO2 POC Base Excess POC O2 Saturation POC ABG O2 Sat Yusef Test O2 Delivery Device POC O2 Rate Minute Ventilation POC FiO2 Tidal Volume PEEP POC Sodium Sodium POC Potassium Potassium Chloride Carbon Dioxide Anion Gap BUN Creatinine Est Cr Clr Drug Dosing Est GFR ( Amer) Est GFR (Non-Af Amer) BUN/Creatinine Ratio Glucose POC Glucose Lactate Calcium Ionized Calcium Phosphorus Magnesium Total Bilirubin Direct Bilirubin AST ALT Alkaline Phosphatase Troponin I NT-Pro-B Natriuret Pep Total Protein Albumin Procalcitonin Nasal Screen MRSA (PCR) Negative Influenza Type A (PCR) Influenza Type B (PCR) Blood Type Antibody Screen Crossmatch
[2018-09-16] MEDS ORDERED: HEPARIN SODIUM/DEXTROSE 25,000 UNITS/500 ML BAG IV SCH (10:45)
[2018-09-16] MEDS ORDERED: SEVERE STRESS LEVEL ONE (11:32)
[2018-09-16] MEDS ORDERED: INSULIN PROTOCOL GOAL RANGE ONE (11:37)
[2018-09-16] MEDS ORDERED: GLUCOSE 40% GEL 15 GM TUBE PO PRN (11:45)
[2018-09-16] MEDS ORDERED: CARBOHYDRATES FOR HYPOGLYCEMIA PO PRN (11:45)
[2018-09-16] MEDS ORDERED: GLUCOSE 10 TABS/TUBE PO PRN (11:45)
[2018-09-16] MEDS ORDERED: DEXTROSE 50% 50 ML SYRINGE IV PRN (11:45)
[2018-09-16] MEDS ORDERED: GLUCAGON FOR INJ 1 MG VIAL IM PRN (11:45)
[2018-09-16] MEDS ORDERED: INSULIN REGULAR 250 UNITS in SODIUM CHLORIDE 0.9% 247.5 ML IV SCH (11:45)
[2018-09-16] MEDS ORDERED: NovoLIN-R BOLUS FROM BAG IV ONE (11:45)
[2018-09-16] MEDS: NOREPINEPHRINE BIT INJ 8 MG in DEXTROSE 5% 500 ML IV SCH ×2 (12:39→15:29)
[2018-09-16] MEDS: fentaNYL DRIP 1,250 MCG/250 ML BAG IV PRN (12:44)
[2018-09-16] MEDS ORDERED: INSULIN ASPART 100 UNITS/ML 3 ML PEN SC SCH (13:00)
--- NOTE | 2018-09-16 13:18 | Ultrasound Report ---
US venous doppler LE CLINICAL HISTORY: 82 years-old Female presenting with elevated RVSP concern for PE/DVT. TECHNIQUE: Real-time grayscale and color and spectral Doppler ultrasound imaging of the veins of the bilateral lower extremities was performed. Compression and augmentation were also utilized. COMPARISON: None. FINDINGS: RIGHT: Common femoral vein: Mobile nonocclusive filling defect compatible with thrombus in the region of the saphenofemoral junction. This is associated with a catheter, which is present within the common femo ral vein and visualized at the confluence of the deep and superficial femoral veins. Greater saphenous vein (superficial): Patent. Deep femoral vein: Patent. Femoral vein: Patent. Popliteal vein: Patent. Calf veins: Patent. LEFT: Common femoral vein: Patent. Greater saphenous vein (superficial): Patent. Deep femoral vein: Patent. Femoral vein: Patent. Popliteal vein: Filling defect expanding and occluding the vein consistent with thrombus. Calf veins: Filling defect consistent with thrombus in the posterior tibial and peroneal veins extend ing superiorly. Anterior tibial vein patent. Other: Complex cystic region in the posterior right medial knee measuring 6.9 x 1.1 x 4.3 cm. Similar complex cystic region in the posterior medial left knee measuring 3.9 x 1.8 x 4.4 cm. IMPRESSION: 1. Limited mobile nonocclusive thrombus associated with the right femoral venous catheter. No additi onal deep venous thrombosis in the right lower extremity. 2. Acute deep venous thrombosis in the left calf veins and extending superiorly into the popliteal v ein which is occluded and extensively involved. 3. Bilateral popliteal cysts suspected. The report will be called/faxed according to standard departmental protocol. Electronically signed by: Pastor Boggs M.D. 09/16/2018 1:16 PM
[2018-09-16 13:21] LABS: BUN Creatinine Ratio 19.5 (10-20); Calcium 7.8 mg/dl (8.5-10.1); Creatinine Clr Calc Pharmacy 24.1 ml/min; Est GFR (African American) 27.8; Potassium 3.9 mmol/L (3.5-5.1)
[2018-09-16 13:25] LABS: Magnesium 2.2 mg/dl (1.8-2.4); Phosphorus 6.3 mg/dl (2.5-4.9)
--- NOTE | 2018-09-16 16:24 | Critical Care Progress Note ---
Date of Service September 16, 2018 Subjective discussed with family and they all agree that she would not want continued care in her current condition and want to proceed with changing focus of care to comfort. will stop all medications except for pain and comfort and take her off of the ventilator. DNR/DNI no new interventions Physical Exam Vital Signs (Past 24 Hours): Last Vital Signs Temp 36.5 C 09/16/18 12:00 Pulse 100 H 09/16/18 15:00 Resp 28 H 09/16/18 15:29 BP 98/54 L 09/16/18 15:00 Pulse Ox 93 09/16/18 15:00
--- NOTE | 2018-09-16 17:45 | Death Summary ---
Date of Service September 16, 2018 Pronouncement Note Date and Time of Date of : 09/16/18 Time of : 17:39 PCOD Preliminary cause of : Acute respiratory distress syndrome (ARDS) Contributing Factors (1) Pneumonia: Additional Data Confirmation of : no pulse, no respirations, no heart sounds, pupils fixed and dilated and other (no response to pain or verbal stimuli) Family: at bedside Attending/PCP notified?: Yes Attending physician: Emeterio Ta, DO Was code activated?: No Autopsy requested?: No field examiner notified?: No Organ bank notified?: Yes Advance directives: Yes
--- NOTE | 2018-09-16 18:03 | Death Summary ---
Date of Service September 16, 2018 Pronouncement Note Date and Time of Date of : 09/16/18 Time of : 17:39 PCOD Preliminary cause of : Acute respiratory failure Contributing Factors (1) ARDS (adult respiratory distress syndrome): (2) Septic shock: (3) Multifocal pneumonia: (4) Hypoxia: (5) Acute kidney injury: (6) Hematochezia: (7) Acute blood loss anemia: (8) Oral thrush: (9) CVA (cerebral vascular accident): Summary Additional details: Patient presented with acute hypoxic respiratory failure that was suspected to be due to multifocal bacterial pneumonia. She had a high grade of hypoxia, requiring High flow nasal canula from the time of admission. She was initially treated with broad spectrum antibiotics and then tapered to just Zosyn and Zithromax. She responded well initially, FiO2 was gradually titrated down to 5L nasal canula. She was treated with steroids for a possible component of pneumonitis. She experienced some oral thrush that was treated with Nystatin S/S and her appetite was very poor. For the first several days of admission she had a difficult time eating anything except some supplemental drinks. On 09/13 a CXR was obtained when she was placed back on high flow nasal canula. Her other vital signs remained stable, but she required more oxygen. The CXR showed worsening of the bilateral infiltrates. Despite the appearance of her lungs she was never in distress, she was able to speak in full sentences and she was motivated to get OOB in a chair each day. On 09/14 her clinical course started to deteriorate. She started having bloody stools early in the morning. Her INR was 2.3 due to Coumadin that had been resumed two days earlier for history of stroke. The INR was reversed with Vitamin K and her hemoglobin was trended, it dropped down to 9.6. She continued to have no appetite and her energy deteriorated. GI saw the patient, recommended Protonix IV BID, no scopes could be done due to her poor respiratory status. She was still only requiring 50% FiO2. On that day she on day 7 of antibiotics. It was not clear why she was not responding to appropriate antibiotic coverage. Procalcitonin was checked which was normal, arguing against active bacterial infection. On 09/15 she rapidly declined throughout the day. In the morning she was requiring 95% FiO2 at 55L on the HFNC. Her Hb had dropped to 7.8. Influenza was negative. She was not eating anything and she continued to have melena. Repeat Hb in the afternoon was still 7.8. She was starting to experience increased work of breathing and distress. She kept requesting a "nerve pill" for her breathing. Morphine 1mg IV was given to try to take away some of her di stress. This lead to the patient vomiting several times, small amounts. She was even more anxious at that time, Ativan 0.5mg IV was given and the patient was able to rest. Due to her worsening respiratory status the issue of intubation was discussed. This was initially discussed in the morning on 09/15 with family present. Explained that if she would require intubation it would only be intended to be for a short course to try to provide the patient with some relief. She agreed to short term intubation. She had a living will that stated that she would not want to be kept alive on life support. Once it was apparent that the patient was deteriorating she was transferred to the ICU. In the ICU her saturations were in the high 80's on 100% FiO2 through HFNC. She was intubated at that time. Orogastric tube was placed and immediately suctioned for several mL of gastric contents. Over night from 09/15 to 09/16 she deteriorated even further. She became hypotensive requiring two vasopressors. Her Cr climbed from 0.8 to 1.2 and then 1.9 and her urine output declined dramatically. Central venous access and arterial line were placed by the ICU team. She remained difficult to ventilate, required sedation and paralytics. Still required 100% FiO2 in the morning. Echocardiogram was checked which showed dilated RV with very poor function, there was also a questionable artifact/clot in RA. Heparin drip was initiated. Antibiotics were broadened to Vancomycin and Imipenem and Caspofungin was added. Plans for bronchoscopy had to placed on hold due to her poor saturations. Long discussion held with patient's and daughter at the bedside as well as grand daughter over the phone. Discussed that the patient was experiencing multi-system organ failure. They discussed that patient would not to be kept alive like this. We discussed that her condition had deteriorated instead of improving on the ventilator. Decision was made to withdrawal care. Patient at 1739 on 09/16/18 with family at the bedside. Additional Data Confirmation of : no pulse, no respirations, no heart sounds, pupils fixed and dilated and other Family: at bedside Attending/PCP notified?: Yes Attending physician: Emeterio Ta, DO Was code activated?: No Autopsy requested?: No cellophane wrapping examiner notified?: No Organ bank notified?: No Advance directives: Yes
[2018-09-16] MEDS ORDERED: CASPOFUNGIN 50 MG in SODIUM CHLORIDE 0.9% 250 ML IV SCH (23:00)
[2018-09-17 13:36] LABS: Patient Temperature 36.5; iSTAT Arterial Blood Gas HCO3 28 meg/L (19-24); iSTAT Arterial Blood Gas pCO2 56 mmHg (35-46); iSTAT Carbon Dioxide 29 mEq/l (24-31); iSTAT Sample Type Arterial
== END 2018-09-16 18:30 | disposition expired | DRG 208 ==
LOC: 2S 18:13 → SUATTDRO 18:13 → 1E 09-15 15:41